=== PATIENT | female | born 1955 | race Caucasian/White ===

== ENCOUNTER → 2024-04-28 | Outpatient (CLI) | payer MEDICARE, MEDICAID, SELFPAY ==
[2024-04-28 09:40] LABS: Basophils # (Auto) 0.1 Thou/mm3 (0.0-0.2); Basophils % (Auto) 1 % (0-2.5); Eosinophils # (Auto) 0.2 Thou/mm3 (0.0-0.5); Eosinophils % (Auto) 2 % (0-10); Hematocrit 41.6 % (36.0-46.0); Immature Granulocytes % (Auto) 1 % (0-0); Immature Granulocytes Auto 0.05 Thou/mm3 (0.00-0.00); Lymphocytes # (Auto) 2.8 Thou/mm3 (1.0-4.8); Lymphocytes % (Auto) 30 % (10-50); Mean Corpuscular HGB Conc 33.7 g/dl (31.0-37.0); Mean Corpuscular Hemoglobin 28.2 pg (25.0-35.0); Mean Corpuscular Volume 84 fL (80-100); Monocytes # (Auto) 0.6 Thou/mm3 (0.0-0.8); Monocytes % (Auto) 6 % (0-12); Neutrophils # (Auto) 5.8 Thou/mm3 (1.8-7.7); Neutrophils % (Auto) 61 % (37-80); Nucleated Red Blood Cell % 0 /100 WBC (0); Platelet Count 380 Thou/mm3 (140-440); RDW Standard Deviation 42.2 fL (36.4-46.3); Red Blood Count 4.96 Miln/mm3 (4.00-5.20); White Blood Count 9.5 Thou/mm3 (3.6-11.0)
[2024-04-28 10:12] LABS: Alanine Aminotransferase 22 U/L (10-49); Albumin, Serum 5.6 gm/dL (3.4-4.8); Albumin/Globulin Ratio 2.2 (1.2-2.2); Alkaline Phosphatase 103 U/L (46-116); Anion Gap 9 (7-16); Aspartate Amino Transferase 16 U/L (0-34); BUN/Creatinine Ratio 14 Ratio (12-20); Bilirubin,Total 0.4 mg/dL (0.3-1.2); Blood Urea Nitrogen 11 mg/dL (9-23); Calcium 10.2 mg/dL (8.3-10.6); Calcium (Corrected) 10.2 mg/dL (8.5-10.1); Carbon Dioxide 27.7 mMol/L (20.0-31.0); Chloride 95 mMol/L (98-107); Creatinine (Component) 0.8 mg/dL (0.6-1.3); Globulin 2.6 gm/dL (2.3-3.5); Glucose 100 mg/dL (74-106); Osmolality,Calculated 263 (275-295); Potassium 4.2 mMol/L (3.4-5.1); Sodium 132 mMol/L (136-145); Total Protein 8.2 gm/dL (5.7-8.2); eGFR > 60 See Note
== END | disposition home or self-care (01) ==
LOC: COPL 09:10
PROVIDERS: PCP Nurse Practitioner Family; Referring Provider Internal Medicine Nephrology; Visit Provider Internal Medicine Nephrology
DX: I12.9 Hypertensive chronic kidney disease with stage 1 through stage 4 chronic kidney disease, or unspecified chronic kidney disease (principal); N18.30 Chronic kidney disease, stage 3 unspecified; D63.1 Anemia in chronic kidney disease; E21.3 Hyperparathyroidism, unspecified
CPT/HCPCS: 36415; 80053; 85025

== ENCOUNTER → 2024-05-26 | Outpatient (CLI) | payer MEDICARE, MEDICAID, SELFPAY ==
[2024-05-26 10:27] LABS: Basophils # (Auto) 0.1 Thou/mm3 (0.0-0.2); Basophils % (Auto) 1 % (0-2.5); Eosinophils # (Auto) 0.6 Thou/mm3 (0.0-0.5); Eosinophils % (Auto) 5 % (0-10); Hematocrit 41.1 % (36.0-46.0); Hemoglobin 13.8 g/dL (12.0-16.0); Immature Granulocytes % (Auto) 1 % (0-0); Immature Granulocytes Auto 0.05 Thou/mm3 (0.00-0.00); Lymphocytes # (Auto) 2.8 Thou/mm3 (1.0-4.8); Lymphocytes % (Auto) 27 % (10-50); Mean Corpuscular HGB Conc 33.6 g/dl (31.0-37.0); Mean Corpuscular Hemoglobin 28.2 pg (25.0-35.0); Mean Corpuscular Volume 84 fL (80-100); Monocytes # (Auto) 0.8 Thou/mm3 (0.0-0.8); Monocytes % (Auto) 8 % (0-12); Neutrophils # (Auto) 6.3 Thou/mm3 (1.8-7.7); Neutrophils % (Auto) 60 % (37-80); Nucleated Red Blood Cell % 0 /100 WBC (0); Platelet Count 404 Thou/mm3 (140-440); RDW Standard Deviation 42.1 fL (36.4-46.3); Red Blood Count 4.89 Miln/mm3 (4.00-5.20); White Blood Count 10.6 Thou/mm3 (3.6-11.0)
[2024-05-26 10:42] LABS: Alanine Aminotransferase 23 U/L (10-49); Albumin, Serum 5.4 gm/dL (3.4-4.8); Albumin/Globulin Ratio 1.8 (1.2-2.2); Alkaline Phosphatase 100 U/L (46-116); Anion Gap 11 (7-16); Aspartate Amino Transferase 22 U/L (0-34); BUN/Creatinine Ratio 16 Ratio (12-20); Bilirubin,Total 0.4 mg/dL (0.3-1.2); Blood Urea Nitrogen 13 mg/dL (9-23); Calcium 10.2 mg/dL (8.3-10.6); Calcium (Corrected) 10.2 mg/dL (8.5-10.1); Carbon Dioxide 28.5 mMol/L (20.0-31.0); Chloride 95 mMol/L (98-107); Creatinine (Component) 0.8 mg/dL (0.6-1.3); Glucose 94 mg/dL (74-106); Osmolality,Calculated 268 (275-295); Phosphorous 4.9 mg/dL (2.4-5.1); Potassium 4.2 mMol/L (3.4-5.1); Sodium 134 mMol/L (136-145); Total Protein 8.4 gm/dL (5.7-8.2); eGFR > 60 See Note
[2024-05-26 10:43] LABS: Creatinine MALB Rnd Ur 19 mg/dL (30-125); Microalbumin Creat Ratio 68 mg/gCrea (<30); Microalbumin, Random Urine 13 mg/L (0-300)
[2024-05-26 10:46] LABS: Parathyroid Hormone Intact 13.3 pg/ml (18.5-88.0)
== END | disposition home or self-care (01) ==
LOC: COPL 09:18
PROVIDERS: PCP Nurse Practitioner Family; Referring Provider Internal Medicine Nephrology; Visit Provider Internal Medicine Nephrology
DX: I12.9 Hypertensive chronic kidney disease with stage 1 through stage 4 chronic kidney disease, or unspecified chronic kidney disease (principal); E11.22 Type 2 diabetes mellitus with diabetic chronic kidney disease; N18.9 Chronic kidney disease, unspecified; D63.1 Anemia in chronic kidney disease; E21.3 Hyperparathyroidism, unspecified
CPT/HCPCS: 36415; 80053; 82043; 82570; 83970; 84100; 85025

== ENCOUNTER → 2024-06-23 | Outpatient (CLI) | payer MEDICARE, MEDICAID, SELFPAY ==
[2024-06-23 13:21] LABS: Basophils # (Auto) 0.1 Thou/mm3 (0.0-0.2); Basophils % (Auto) 1 % (0-2.5); Eosinophils # (Auto) 0.5 Thou/mm3 (0.0-0.5); Eosinophils % (Auto) 5 % (0-10); Hematocrit 39.6 % (36.0-46.0); Hemoglobin 13.4 g/dL (12.0-16.0); Immature Granulocytes % (Auto) 1 % (0-0); Immature Granulocytes Auto 0.05 Thou/mm3 (0.00-0.00); Lymphocytes # (Auto) 3.7 Thou/mm3 (1.0-4.8); Lymphocytes % (Auto) 34 % (10-50); Mean Corpuscular HGB Conc 33.8 g/dl (31.0-37.0); Mean Corpuscular Volume 86 fL (80-100); Monocytes # (Auto) 0.7 Thou/mm3 (0.0-0.8); Monocytes % (Auto) 7 % (0-12); Neutrophils # (Auto) 5.9 Thou/mm3 (1.8-7.7); Neutrophils % (Auto) 54 % (37-80); Nucleated Red Blood Cell % 0 /100 WBC (0); Platelet Count 398 Thou/mm3 (140-440); RDW Standard Deviation 41.4 fL (36.4-46.3); Red Blood Count 4.62 Miln/mm3 (4.00-5.20)
[2024-06-23 13:41] LABS: Alanine Aminotransferase 14 U/L (10-49); Albumin, Serum 5.5 gm/dL (3.4-4.8); Albumin/Globulin Ratio 2.3 (1.2-2.2); Alkaline Phosphatase 100 U/L (46-116); Anion Gap 11 (7-16); Aspartate Amino Transferase 15 U/L (0-34); BUN/Creatinine Ratio 18 Ratio (12-20); Bilirubin,Total 0.3 mg/dL (0.3-1.2); Blood Urea Nitrogen 14 mg/dL (9-23); Calcium 9.1 mg/dL (8.3-10.6); Calcium (Corrected) 9.1 mg/dL (8.5-10.1); Carbon Dioxide 30.9 mMol/L (20.0-31.0); Chloride 94 mMol/L (98-107); Creatinine (Component) 0.8 mg/dL (0.6-1.3); Globulin 2.4 gm/dL (2.3-3.5); Glucose 100 mg/dL (74-106); Osmolality,Calculated 272 (275-295); Potassium 4.1 mMol/L (3.4-5.1); Sodium 136 mMol/L (136-145); Total Protein 7.9 gm/dL (5.7-8.2); eGFR > 60 See Note
== END | disposition home or self-care (01) ==
LOC: COPL 11:28
PROVIDERS: PCP Nurse Practitioner Family; Referring Provider Internal Medicine Nephrology; Visit Provider Internal Medicine Nephrology
DX: I12.9 Hypertensive chronic kidney disease with stage 1 through stage 4 chronic kidney disease, or unspecified chronic kidney disease (principal); N18.9 Chronic kidney disease, unspecified; D63.1 Anemia in chronic kidney disease; E87.1 Hypo-osmolality and hyponatremia
CPT/HCPCS: 36415; 80053; 85025

== ENCOUNTER → 2024-07-21 | Outpatient (CLI) | payer MEDICARE, MEDICAID, SELFPAY ==
[2024-07-21 12:05] LABS: Basophils # (Auto) 0.1 Thou/mm3 (0.0-0.2); Basophils % (Auto) 1 % (0-2.5); Eosinophils # (Auto) 0.2 Thou/mm3 (0.0-0.5); Eosinophils % (Auto) 1 % (0-10); Hematocrit 41.4 % (36.0-46.0); Hemoglobin 14.1 g/dL (12.0-16.0); Immature Granulocytes % (Auto) 0 % (0-0); Immature Granulocytes Auto 0.05 Thou/mm3 (0.00-0.00); Lymphocytes # (Auto) 2.9 Thou/mm3 (1.0-4.8); Lymphocytes % (Auto) 26 % (10-50); Mean Corpuscular HGB Conc 34.1 g/dl (31.0-37.0); Mean Corpuscular Hemoglobin 28.8 pg (25.0-35.0); Mean Corpuscular Volume 85 fL (80-100); Monocytes # (Auto) 0.8 Thou/mm3 (0.0-0.8); Monocytes % (Auto) 7 % (0-12); Neutrophils # (Auto) 7.3 Thou/mm3 (1.8-7.7); Neutrophils % (Auto) 65 % (37-80); Nucleated Red Blood Cell % 0 /100 WBC (0); Platelet Count 428 Thou/mm3 (140-440); RDW Standard Deviation 39.5 fL (36.4-46.3); White Blood Count 11.3 Thou/mm3 (3.6-11.0)
[2024-07-21 13:29] LABS: Parathyroid Hormone Intact 10.2 pg/ml (18.5-88.0)
[2024-07-21 13:32] LABS: Alanine Aminotransferase 16 U/L (10-49); Albumin, Serum 5.5 gm/dL (3.4-4.8); Albumin/Globulin Ratio 2.2 (1.2-2.2); Alkaline Phosphatase 91 U/L (46-116); Anion Gap 10 (7-16); Aspartate Amino Transferase 19 U/L (0-34); BUN/Creatinine Ratio 23 Ratio (12-20); Bilirubin,Total 0.4 mg/dL (0.3-1.2); Blood Urea Nitrogen 18 mg/dL (9-23); Calcium 9.6 mg/dL (8.3-10.6); Calcium (Corrected) 9.6 mg/dL (8.5-10.1); Carbon Dioxide 27.8 mMol/L (20.0-31.0); Chloride 93 mMol/L (98-107); Creatinine (Component) 0.8 mg/dL (0.6-1.3); Globulin 2.5 gm/dL (2.3-3.5); Glucose 92 mg/dL (74-106); Osmolality,Calculated 264 (275-295); Phosphorous 5.1 mg/dL (2.4-5.1); Potassium 4.6 mMol/L (3.4-5.1); Sodium 131 mMol/L (136-145); eGFR > 60 See Note
[2024-07-21 14:02] LABS: Creatinine MALB Rnd Ur < 13 mg/dL (30-125); Microalbumin, Random Urine < 3 mg/L (0-300)
== END | disposition home or self-care (01) ==
PROVIDERS: PCP Internal Medicine Nephrology; Referring Provider Internal Medicine Nephrology; Visit Provider Internal Medicine Nephrology
DX: I12.9 Hypertensive chronic kidney disease with stage 1 through stage 4 chronic kidney disease, or unspecified chronic kidney disease (principal); E11.22 Type 2 diabetes mellitus with diabetic chronic kidney disease; N18.9 Chronic kidney disease, unspecified; D63.1 Anemia in chronic kidney disease; E21.3 Hyperparathyroidism, unspecified; E87.1 Hypo-osmolality and hyponatremia
CPT/HCPCS: 36415; 80053; 82043; 82570; 83970; 84100; 85025

== ENCOUNTER → 2024-08-26 | Outpatient (CLI) | payer MEDICARE, MEDICAID, SELFPAY ==
[2024-08-26 12:27] LABS: Basophils # (Auto) 0.1 Thou/mm3 (0.0-0.2); Basophils % (Auto) 1 % (0-2.5); Eosinophils # (Auto) 0.3 Thou/mm3 (0.0-0.5); Eosinophils % (Auto) 2 % (0-10); Hematocrit 40.3 % (36.0-46.0); Hemoglobin 13.5 g/dL (12.0-16.0); Immature Granulocytes % (Auto) 1 % (0-0); Immature Granulocytes Auto 0.12 Thou/mm3 (0.00-0.00); Lymphocytes # (Auto) 2.9 Thou/mm3 (1.0-4.8); Lymphocytes % (Auto) 26 % (10-50); Mean Corpuscular HGB Conc 33.5 g/dl (31.0-37.0); Mean Corpuscular Hemoglobin 28.7 pg (25.0-35.0); Mean Corpuscular Volume 86 fL (80-100); Monocytes # (Auto) 0.8 Thou/mm3 (0.0-0.8); Monocytes % (Auto) 7 % (0-12); Neutrophils # (Auto) 7.1 Thou/mm3 (1.8-7.7); Neutrophils % (Auto) 63 % (37-80); Nucleated Red Blood Cell % 0 /100 WBC (0); Platelet Count 368 Thou/mm3 (140-440); RDW Standard Deviation 39.6 fL (36.4-46.3); Red Blood Count 4.71 Miln/mm3 (4.00-5.20); White Blood Count 11.2 Thou/mm3 (3.6-11.0)
[2024-08-26 12:41] LABS: Alanine Aminotransferase 15 U/L (10-49); Albumin/Globulin Ratio 1.9 (1.2-2.2); Alkaline Phosphatase 84 U/L (46-116); Anion Gap 10 (7-16); Aspartate Amino Transferase 17 U/L (0-34); BUN/Creatinine Ratio 20 Ratio (12-20); Bilirubin,Total 0.3 mg/dL (0.3-1.2); Blood Urea Nitrogen 16 mg/dL (9-23); Calcium 9.1 mg/dL (8.3-10.6); Calcium (Corrected) 9.1 mg/dL (8.5-10.1); Carbon Dioxide 26.8 mMol/L (20.0-31.0); Chloride 96 mMol/L (98-107); Creatinine (Component) 0.8 mg/dL (0.6-1.3); Globulin 2.6 gm/dL (2.3-3.5); Glucose 103 mg/dL (74-106); Osmolality,Calculated 267 (275-295); Potassium 4.1 mMol/L (3.4-5.1); Sodium 133 mMol/L (136-145); Total Protein 7.6 gm/dL (5.7-8.2); eGFR > 60 See Note
== END | disposition home or self-care (01) ==
LOC: COPL 11:13
PROVIDERS: PCP Nurse Practitioner Family; Referring Provider Internal Medicine Nephrology; Visit Provider Internal Medicine Nephrology
DX: E11.22 Type 2 diabetes mellitus with diabetic chronic kidney disease (principal); E21.3 Hyperparathyroidism, unspecified; E78.1 Pure hyperglyceridemia; N04.9 Nephrotic syndrome with unspecified morphologic changes; N18.30 Chronic kidney disease, stage 3 unspecified
CPT/HCPCS: 36415; 80053; 85025

== ENCOUNTER → 2024-09-22 | Outpatient (CLI) | payer MEDICARE, MEDICAID, SELFPAY ==
[2024-09-22 11:43] LABS: Basophils # (Auto) 0.1 Thou/mm3 (0.0-0.2); Basophils % (Auto) 1 % (0-2.5); Eosinophils # (Auto) 0.2 Thou/mm3 (0.0-0.5); Eosinophils % (Auto) 3 % (0-10); Hematocrit 40.1 % (36.0-46.0); Hemoglobin 13.4 g/dL (12.0-16.0); Immature Granulocytes % (Auto) 1 % (0-0); Immature Granulocytes Auto 0.06 Thou/mm3 (0.00-0.00); Lymphocytes # (Auto) 3.3 Thou/mm3 (1.0-4.8); Lymphocytes % (Auto) 34 % (10-50); Mean Corpuscular HGB Conc 33.4 g/dl (31.0-37.0); Mean Corpuscular Hemoglobin 28.5 pg (25.0-35.0); Mean Corpuscular Volume 85 fL (80-100); Monocytes # (Auto) 0.6 Thou/mm3 (0.0-0.8); Monocytes % (Auto) 6 % (0-12); Neutrophils # (Auto) 5.5 Thou/mm3 (1.8-7.7); Neutrophils % (Auto) 56 % (37-80); Nucleated Red Blood Cell % 0 /100 WBC (0); Platelet Count 358 Thou/mm3 (140-440); RDW Standard Deviation 40.6 fL (36.4-46.3); Red Blood Count 4.71 Miln/mm3 (4.00-5.20); White Blood Count 9.7 Thou/mm3 (3.6-11.0)
[2024-09-22 11:52] LABS: Alanine Aminotransferase 15 U/L (10-49); Albumin/Globulin Ratio 2.1 (1.2-2.2); Alkaline Phosphatase 88 U/L (46-116); Anion Gap 8 (7-16); Aspartate Amino Transferase 18 U/L (0-34); BUN/Creatinine Ratio 15 Ratio (12-20); Bilirubin,Total 0.4 mg/dL (0.3-1.2); Blood Urea Nitrogen 12 mg/dL (9-23); Calcium 9.6 mg/dL (8.3-10.6); Calcium (Corrected) 9.6 mg/dL (8.5-10.1); Carbon Dioxide 27.5 mMol/L (20.0-31.0); Cardiac Risk Estimate 3.1 RATIO (3.7-5.6); Chloride 98 mMol/L (98-107); Cholesterol 144 mg/dL (132-200); Creatinine (Component) 0.8 mg/dL (0.6-1.3); Globulin 2.4 gm/dL (2.3-3.5); Glucose 93 mg/dL (74-106); HDL Cholesterol 46 mg/dL (40-60); LDL Cholesterol,Calculated 63 mg/dL (0-130); Osmolality,Calculated 266 (275-295); Potassium 4.9 mMol/L (3.4-5.1); Sodium 133 mMol/L (136-145); Thyroid Stimulating Hormone 0.92 uIU/mL (0.55-4.78); Total Protein 7.4 gm/dL (5.7-8.2); Triglycerides 176 mg/dL (30-150); eGFR > 60 See Note
[2024-09-22 13:05] LABS: Glucose Estimated Average 120 mg/dL (80-131); Hemoglobin A1C 5.8 % Hgb (4.8-6.0)
== END | disposition home or self-care (01) ==
PROVIDERS: PCP Nurse Practitioner Family; Referring Provider Internal Medicine Nephrology; Visit Provider Internal Medicine Nephrology
DX: I12.9 Hypertensive chronic kidney disease with stage 1 through stage 4 chronic kidney disease, or unspecified chronic kidney disease (principal); E11.22 Type 2 diabetes mellitus with diabetic chronic kidney disease; N18.9 Chronic kidney disease, unspecified; D63.1 Anemia in chronic kidney disease; E11.65 Type 2 diabetes mellitus with hyperglycemia; E78.2 Mixed hyperlipidemia; E03.9 Hypothyroidism, unspecified; Z79.899 Other long term (current) drug therapy
CPT/HCPCS: 36415; 80053; 80061; 83036; 84443; 85025

== ENCOUNTER → 2024-10-08 | Outpatient (CLI) | payer MEDICARE, MEDICAID, SELFPAY ==
--- NOTE | 2024-10-08 13:54 | XR_ITS ---
Examination: Screening digital mammography, bilateral Computer aided detection 3-D breast Tomosynthesis, bilateral Date and time of exam: October 08, 2024 1359 hours Compared to mammograms dating to March 23, 2022 Indication: Screening Technique: Nonmagnified MLO, CC views of the breasts to been obtained, reconstructed from 3-D Tomosynthesis images. R2 computer aided detection program utilized for evaluation of suspicious masses and/or abnormal calcifications. 3-D Tomosynthesis images obtained. Findings: The breasts are heterogeneously dense, which may obscure small masses Benign calcifications No interval suspicious masses Impression: BI-RADS category II: Benign Findings. Recommend 1 year follow-up mammogram.
== END | disposition home or self-care (01) ==
PROVIDERS: PCP Nurse Practitioner Family; Referring Provider Nurse Practitioner Family; Visit Provider Nurse Practitioner Family
DX: Z12.31 Encounter for screening mammogram for malignant neoplasm of breast (principal); R92.323 Mammographic fibroglandular density, bilateral breasts
CPT/HCPCS: 77063; 77067

== ENCOUNTER → 2024-10-20 | Outpatient (CLI) | payer MEDICARE, MEDICAID, SELFPAY ==
[2024-10-20 11:54] LABS: Basophils # (Auto) 0.1 Thou/mm3 (0.0-0.2); Basophils % (Auto) 1 % (0-2.5); Eosinophils # (Auto) 0.3 Thou/mm3 (0.0-0.5); Eosinophils % (Auto) 3 % (0-10); Hematocrit 39.2 % (36.0-46.0); Hemoglobin 13.4 g/dL (12.0-16.0); Immature Granulocytes % (Auto) 1 % (0-0); Immature Granulocytes Auto 0.05 Thou/mm3 (0.00-0.00); Lymphocytes % (Auto) 32 % (10-50); Mean Corpuscular HGB Conc 34.2 g/dl (31.0-37.0); Mean Corpuscular Hemoglobin 29.5 pg (25.0-35.0); Mean Corpuscular Volume 86 fL (80-100); Monocytes # (Auto) 0.7 Thou/mm3 (0.0-0.8); Monocytes % (Auto) 7 % (0-12); Neutrophils # (Auto) 5.3 Thou/mm3 (1.8-7.7); Neutrophils % (Auto) 57 % (37-80); Nucleated Red Blood Cell % 0 /100 WBC (0); Platelet Count 349 Thou/mm3 (140-440); RDW Standard Deviation 41.6 fL (36.4-46.3); Red Blood Count 4.54 Miln/mm3 (4.00-5.20); White Blood Count 9.4 Thou/mm3 (3.6-11.0)
[2024-10-20 12:09] LABS: Alanine Aminotransferase 18 U/L (10-49); Albumin, Serum 5.1 gm/dL (3.4-4.8); Albumin/Globulin Ratio 1.8 (1.2-2.2); Alkaline Phosphatase 85 U/L (46-116); Anion Gap 10 (7-16); Aspartate Amino Transferase 23 U/L (0-34); BUN/Creatinine Ratio 19 Ratio (12-20); Bilirubin,Total 0.3 mg/dL (0.3-1.2); Blood Urea Nitrogen 17 mg/dL (9-23); Calcium 9.4 mg/dL (8.3-10.6); Calcium (Corrected) 9.4 mg/dL (8.5-10.1); Carbon Dioxide 27.2 mMol/L (20.0-31.0); Chloride 97 mMol/L (98-107); Creatinine (Component) 0.9 mg/dL (0.6-1.3); Globulin 2.8 gm/dL (2.3-3.5); Glucose 103 mg/dL (74-106); Osmolality,Calculated 269 (275-295); Phosphorous 4.4 mg/dL (2.4-5.1); Potassium 4.7 mMol/L (3.4-5.1); Sodium 134 mMol/L (136-145); Total Protein 7.9 gm/dL (5.7-8.2); eGFR > 60 See Note
[2024-10-20 12:14] LABS: Parathyroid Hormone Intact 8.2 pg/ml (18.5-88.0)
[2024-10-20 12:24] LABS: Creatinine MALB Rnd Ur 18 mg/dL (30-125); Microalbumin, Random Urine < 3 mg/L (0-300)
== END | disposition home or self-care (01) ==
LOC: COPL 10:21
PROVIDERS: PCP Nurse Practitioner Family; Referring Provider Internal Medicine Nephrology; Visit Provider Internal Medicine Nephrology
DX: E11.22 Type 2 diabetes mellitus with diabetic chronic kidney disease (principal); N18.9 Chronic kidney disease, unspecified; D63.1 Anemia in chronic kidney disease; E21.3 Hyperparathyroidism, unspecified; N04.9 Nephrotic syndrome with unspecified morphologic changes; E78.5 Hyperlipidemia, unspecified
CPT/HCPCS: 36415; 80053; 82043; 82570; 83970; 84100; 85025

== ENCOUNTER 2024-10-30 09:14 | Outpatient (AMB) | payer MEDICARE, MEDICAID, SELFPAY ==
[2024-10-30 09:39] VITALS: BP 123/71; PULSE 88; RESP 18; TEMP 36.9; O2SAT 93; BMI 33.3
--- NOTE | 2024-10-30 09:39 | ORTHONT_ITS ---
Vital signs 10/30/24 09:39 Height 1.6 m Height Method Stated Weight 85.445 kg Weight Measurement Method Standing Scale BMI 33.3 BP 123/71 Blood Pressure Source Automatic Cuff Blood Pressure Location Right Upper Arm Position Sitting Respiration 18 Pulse 88 Pulse Source Monitor Temp 98.4 F Temp Source Temporal Artery Scan Pulse Oximetry (%) 93 L Oxygen Delivery Method Room Air Med/Allergies Allergies & Medications Allergies codeine Allergy (Mild, Verified 10/30/24 09:40) Nausea Medication Reconciliation atorvastatin 10 mg tablet 10 mg PO QDAY 06/28/18 [History Confirmed 10/30/24] citalopram 20 mg tablet 40 mg PO QDAY 06/28/18 [History Confirmed 10/30/24] clonazepam 0.5 mg tablet 0.5 mg PO HS 06/28/18 [History Confirmed 10/30/24] gabapentin 300 mg capsule 300 mg PO BID 06/28/18 [History Confirmed 10/30/24] levothyroxine 75 mcg tablet 75 mcg PO QDAY 06/28/18 [History Confirmed 10/30/24] olanzapine 15 mg tablet 15 mg PO DAILY 06/28/18 [History Confirmed 10/30/24] pantoprazole 40 mg tablet,delayed release 40 mg PO QDAY 06/28/18 [History Confirmed 10/30/24] lisinopril 20 mg tablet 10 mg PO QDAY 03/11/21 [History Confirmed 10/30/24] metformin 500 mg tablet 500 mg PO QDAY 03/11/21 [History Confirmed 10/30/24] albuterol sulfate 90 mcg/actuation aerosol inhaler 2 puff inhalation Q6H PRN shortness of breath or wheezing #6.7 grams 03/21/21 [Rx Confirmed 10/30/24] acetaminophen 325 mg tablet (Tylenol) 500 mg PO BID PRN Pain 07/05/22 [History Confirmed 10/30/24] amlodipine 10 mg tablet 10 mg PO 1XD 07/05/22 [History Confirmed 10/30/24] docusate sodium 100 mg tablet 100 mg PO QDAY 07/05/22 [History Confirmed 10/30/24] ferrous sulfate 325 mg (65 mg iron) tablet 325 mg PO BID 07/05/22 [History Confirmed 10/30/24] fluticasone furoate 27.5 mcg/actuation nasal spray,suspension 1 spray intranasal QDAY 07/05/22 [History Confirmed 10/30/24] furosemide 20 mg tablet 20 mg PO 1XD 07/05/22 [History Confirmed 10/30/24] tramadol 50 mg tablet 50 mg PO BID PRN Pain 07/05/22 [History Confirmed 10/30/24] meloxicam 7.5 mg tablet 7.5 mg PO QDAY #45 tabs 10/30/24 [Rx] Exam Exam Patient is in no acute distress and is cooperative with the examination today. Breathing is nonlabored. Patient has a normal mood and affect. The patient has a gait that is nonantalgic Bilateral extremities were evaluated and demonstrates sensation intact to light touch. Palpable pedal pulses are present. No significant edema is present. Bilateral hips were examined. The patient has no pain with log roll of the hips. Internal rotation to 30 degrees and external rotation to 30 degrees is painless. Negative FADIR. Right knee was examined today. The right knee is in reasonable alignment. Range of motion from 0-120 degrees. Knee is stable to varus and valgus as well as AP translation with <5mm. Incision is clean dry and intact Left knee was examined today. The left knee is in neutral alignment. Range of motion from 0-120 degrees. Knee is stable to varus and valgus as well as AP translation with <5mm. Incision is clean dry and intact. She is very tender to palpation posterior laterally Assessment and Plan Problem List (1) Tendonitis: Status: Acute Plan: Patient Is a 69-year-old female with bilateral knee pain. The pain is improved significantly with rest and anti-inflammatories. We discussed continued conservative treatment. A lot of the pain seems to be hamstring tendinitis at its insertion on the fibula. We will get new x-rays as it has been quite a while. She continues to have posterior lateral pain. I recommend physical therapy. We will see her back after her x-rays are done (2) Pain in right knee: Status: Acute (3) Posterior left knee pain: Status: Acute Advanced Care Planning Discussion Advance care planning discussed with:: patient Office Procedures GNS Level of Care Nursing/Assessment Patient Status: Initial/New Patient Nursing Assessment/Reassesment: Medication Reconciliation and Update PMH in EMR Coordination of Care: Complex Care and Chronic Disease 1-5, Consent,records obtained, informed consent, Education Simp Pt/Fam, 1 Ins Authorization, Lab and Imaging orders and Results/Orders obtained New Patient Charge New Patient Point Assignment: 1094 New Patient Point Charge: TRANSFORMATION SPECIALIST Level 3 ([id number]) MA Intake Visit Data Collection New Patient or Established: Established Patient (seen at [facility] within 3 years) Reason for Visit:: LT KNEE PAIN Seen by Clinical Staff ONLY (RN/MA): No Geosciences Faculty Member Required: No PCP or OBGYN visit in last 3 months: Yes Hx Now: No Do You Feel Safe at Home: Yes Authorities Contacted: N/A Questionairres Past Medical History Past Medical History Have you ever been diagnosed with any of the following: Neurological Problems Seizures: No Migraine: Yes Cardiology Problems Hypercholesterolemia: Yes (takes medication) Congestive Heart Failure: No Edema: No Cellulitis: No Hypertension: Yes (takes medication) Varicose Veins: No Respiratory Problems Chronic Obstructive Pulmonary Disease (COPD): No Asthma: Yes (asthma, takes inhaler regularly) Bronchitis: Yes Pneumonia: Yes Tuberculosis: No Sleep Apnea: No Smoking: No Smoking Cessation Counseling: No Smoking Exposure: No Tobacco Use: No Stomache/Intestinal Problems Hepatitis: No Colorectal Cancer: No Hemorrhoids: Yes (and constipation) Gastroesophageal Reflux Disease: Yes (takes medication) Obesity: Yes Genital/Urinary Problems Renal Disease: No Reproductive Problems Breast Cancer: No Pelvic Inflammatory Disease: No Previous Pregnancies: No Musculoskeletal Problems Bone Cancer: No Arthritis: Yes Carpal Tunnel Syndrome: No Fractures: No Head,Eye,Nose,Throat Problems Cataracts: Yes (Right eye) Deafness: Yes (wears hearing aid-bilateral) Endocrine Problems Diabetes Mellitus Type 1: No Diabetes Mellitus Type 2: Yes (takes medication) Hypothyroidism: Yes (takes medication) Blood Problems Anemia: Yes (takes medication) Psychologic Problems Schizophrenia: Yes (takes medication) Depression: Yes (takes medication) Anxiety: Yes (takes medication) Other Problems Hospitalization: Yes (knee replacement 2020) Shingles: Yes (2001) Falls: No Blood Transfusions: No Blood Transfusion Reaction: No Anesthesia Reactions: Yes (sensitive) Chemotherapy: No Radiation Therapy: No MRSA: No Chicken Pox: Yes (child) Measles: No Mumps: No Clostridium Difficile: No Cancer: No Cervical Cancer: No Lung Cancer: No Ovarian Cancer: No Surgical History Hysterectomy: No Pacemaker: No Subjective Visit Visit for: new patient and knee (LEFT KNEE ) Immunization / Flu Flu Vaccine in the Last 12 Months: Yes Flu Vaccine Exclusion Criteria: Already Received History of Present Illness Chief complaint: Left knee pain Tab is a pleasant 69-year-old female with left knee pain. The left knee pain has been ongoing since surgery few years ago with Dr. Gomez. She reports that the pain on the posterior lateral aspect of her knee. She has no x-rays with her today Personal History Red flag PMH: none Pain Pain level (0-10): 10 Pain duration: 2 YEARS Pain location: anterior Pain quality: sharp Pain timing: night and increases with activity Associated signs & symptoms: weakness and stiffness Ambulatory data Ambulatory device: walker Walking distance (minutes): 1 Treatments Number of previous injections: 0 Number of Physical Therapy sessions: 8 Improvement with PT: No Improvement with NSAIDS: n/a Review of Systems Review of Systems: All systems negative unless otherwise noted in HPI.
--- NOTE | 2024-10-30 09:44 | XR_ITS ---
Examination: Bilateral knees 2 views Right lateral knee left lateral knee 2 views Bilateral axial knees single view TECHNIQUE: Bilateral AP knees standing single view, bilateral PA knees standing single view flexion Standing right lateral knee left lateral knee 2 views Bilateral axial knees single view total 5 views Date and time: October 30, 2024 0955 hours INDICATIONS: Knee pain beginning 2 years ago. FINDINGS: Moderate osteopenia. Bilateral total knee arthroplasties with satisfactory alignment. No fractures No loosening of the prosthetic components No patellar dislocation IMPRESSION: Bilateral total knee arthroplasties with satisfactory alignment
== END 2024-10-30 09:53 | disposition home or self-care (01) ==
LOC: HODSRG 09:15
PROVIDERS: PCP Nurse Practitioner Family; Referring Provider Nurse Practitioner Family; Supervising Provider Orthopaedic Surgery Adult Reconstructive Orthopaedic Surgery; Visit Provider Orthopaedic Surgery Adult Reconstructive Orthopaedic Surgery
DX: M77.9 Enthesopathy, unspecified (principal); M25.562 Pain in left knee; M25.561 Pain in right knee
CPT/HCPCS: 73564; 99203; G0463

== ENCOUNTER 2024-11-18 10:35 | Outpatient (AMB) | payer MEDICARE, MEDICAID, SELFPAY ==
[2024-11-18 10:54] VITALS: BP 123/78; PULSE 78; RESP 19; TEMP 36.2; O2SAT 94; BMI 33.5
--- NOTE | 2024-11-18 10:54 | ORTHONT_ITS ---
Vital signs 11/18/24 10:54 Height 1.6 m Height Method Stated Weight 85.729 kg Weight Measurement Method Standing Scale BMI 33.5 BP 123/78 Blood Pressure Source Automatic Cuff Blood Pressure Location Left Upper Arm Position Sitting Respiration 19 Pulse 78 Pulse Source Monitor Temp 97.2 F Temp Source Temporal Artery Scan Pulse Oximetry (%) 94 L Oxygen Delivery Method Room Air Med/Allergies Allergies & Medications Allergies codeine Allergy (Mild, Verified 11/18/24 10:55) Nausea Medication Reconciliation atorvastatin 10 mg tablet 10 mg PO QDAY 06/28/18 [History Confirmed 11/18/24] citalopram 20 mg tablet 40 mg PO QDAY 06/28/18 [History Confirmed 11/18/24] clonazepam 0.5 mg tablet 0.5 mg PO HS 06/28/18 [History Confirmed 11/18/24] gabapentin 300 mg capsule 300 mg PO BID 06/28/18 [History Confirmed 11/18/24] levothyroxine 75 mcg tablet 75 mcg PO QDAY 06/28/18 [History Confirmed 11/18/24] olanzapine 15 mg tablet 15 mg PO DAILY 06/28/18 [History Confirmed 11/18/24] pantoprazole 40 mg tablet,delayed release 40 mg PO QDAY 06/28/18 [History Confirmed 11/18/24] lisinopril 20 mg tablet 10 mg PO QDAY 03/11/21 [History Confirmed 11/18/24] metformin 500 mg tablet 500 mg PO QDAY 03/11/21 [History Confirmed 11/18/24] albuterol sulfate 90 mcg/actuation aerosol inhaler 2 puff inhalation Q6H PRN shortness of breath or wheezing #6.7 grams 03/21/21 [Rx Confirmed 11/18/24] acetaminophen 325 mg tablet (Tylenol) 500 mg PO BID PRN Pain 07/05/22 [History Confirmed 11/18/24] amlodipine 10 mg tablet 10 mg PO 1XD 07/05/22 [History Confirmed 11/18/24] docusate sodium 100 mg tablet 100 mg PO QDAY 07/05/22 [History Confirmed 11/18/24] ferrous sulfate 325 mg (65 mg iron) tablet 325 mg PO BID 07/05/22 [History Confirmed 11/18/24] fluticasone furoate 27.5 mcg/actuation nasal spray,suspension 1 spray intranasal QDAY 07/05/22 [History Confirmed 11/18/24] furosemide 20 mg tablet 20 mg PO 1XD 07/05/22 [History Confirmed 11/18/24] tramadol 50 mg tablet 50 mg PO BID PRN Pain 07/05/22 [History Confirmed 11/18/24] meloxicam 7.5 mg tablet 7.5 mg PO QDAY #45 tabs 10/30/24 [Rx Confirmed 11/18/24] Exam Exam Patient is in no acute distress and is cooperative with the examination today. Breathing is nonlabored. Patient has a normal mood and affect. The patient has a gait that is nonantalgic Bilateral extremities were evaluated and demonstrates sensation intact to light touch. Palpable pedal pulses are present. No significant edema is present. Bilateral hips were examined. The patient has no pain with log roll of the hips. Internal rotation to 30 degrees and external rotation to 30 degrees is painless. Negative FADIR. Right knee was examined today. The right knee is in reasonable alignment. Range of motion from 0-120 degrees. Knee is stable to varus and valgus as well as AP translation with <5mm. Incision is clean dry and intact Left knee was examined today. The left knee is in neutral alignment. Range of motion from 0-120 degrees. Knee is stable to varus and valgus as well with <5mm. She does have greater than 1 cm of motion in the AP translation with flexion. Incision is clean dry and intact. She is very tender to palpation posterior laterally Assessment and Plan Problem List (1) Tendonitis: Status: Acute Plan: Patient Is a 69-year-old female with bilateral knee pain. The pain is improved significantly with rest and anti-inflammatories. We discussed continued conservative treatment. A lot of the pain seems to be hamstring tendinitis at its insertion on the fibula. She does have pain posteriorly and there is flexion instability of her knee. We discussed that we can try exercising on. She is on pain medication and reports that she does have pain everywhere. We discussed that this is not a good prognostic sign. X-rays demonstrate no loosening of the component (2) Pain in right knee: Status: Acute (3) Posterior left knee pain: Status: Acute Advanced Care Planning Discussion Advance care planning discussed with:: patient Office Procedures GNS Level of Care Nursing/Assessment Patient Status: Established Patient Nursing Assessment/Reassesment: Medication Reconciliation, Update PMH in EMR and Vital Signs Coordination of Care: Complex Care and Chronic Disease 1-5, Education Complex Pt/Fam, Consent,records obtained, informed consent, Results/Orders obtained and Staff clarify orders Established Patient Charge Established Patient Point Assignment: 95 Established Patient Point Charge: EP Level 3 (80-115) MA Intake Visit Data Collection New Patient or Established: Established Patient (seen at [facility] within 3 years) Reason for Visit:: FOLLOW UP XRAYS/REQ RX REFILLS Seen by Clinical Staff ONLY (RN/MA): No PCP or OBGYN visit in last 3 months: Yes Hx Now: No Do You Feel Safe at Home: Yes Authorities Contacted: N/A Questionairres Past Medical History Past Medical History Have you ever been diagnosed with any of the following: Neurological Problems Seizures: No Migraine: Yes Cardiology Problems Hypercholesterolemia: Yes (takes medication) Congestive Heart Failure: No Edema: No Cellulitis: No Hypertension: Yes (takes medication) Varicose Veins: No Respiratory Problems Chronic Obstructive Pulmonary Disease (COPD): No Asthma: Yes (asthma, takes inhaler regularly) Bronchitis: Yes Pneumonia: Yes Tuberculosis: No Sleep Apnea: No Smoking: No Smoking Cessation Counseling: No Smoking Exposure: No Tobacco Use: No Stomache/Intestinal Problems Hepatitis: No Colorectal Cancer: No Hemorrhoids: Yes (and constipation) Gastroesophageal Reflux Disease: Yes (takes medication) Obesity: Yes Genital/Urinary Problems Renal Disease: No Reproductive Problems Breast Cancer: No Pelvic Inflammatory Disease: No Previous Pregnancies: No Musculoskeletal Problems Bone Cancer: No Arthritis: Yes Carpal Tunnel Syndrome: No Fractures: No Head,Eye,Nose,Throat Problems Cataracts: Yes (Right eye) Deafness: Yes (wears hearing aid-bilateral) Endocrine Problems Diabetes Mellitus Type 1: No Diabetes Mellitus Type 2: Yes (takes medication) Hypothyroidism: Yes (takes medication) Blood Problems Anemia: Yes (takes medication) Psychologic Problems Schizophrenia: Yes (takes medication) Depression: Yes (takes medication) Anxiety: Yes (takes medication) Other Problems Hospitalization: Yes (knee replacement 2020) Shingles: Yes (2001) Falls: No Blood Transfusions: No Blood Transfusion Reaction: No Anesthesia Reactions: Yes (sensitive) Chemotherapy: No Radiation Therapy: No MRSA: No Chicken Pox: Yes (child) Measles: No Mumps: No Clostridium Difficile: No Cancer: No Cervical Cancer: No Lung Cancer: No Ovarian Cancer: No Surgical History Hysterectomy: No Pacemaker: No Subjective Visit Visit for: follow up visit and x-rays Immunization / Flu Flu Vaccine in the Last 12 Months: No Flu Vaccine Exclusion Criteria: No Exclusion Criteria History of Present Illness Chief complaint: Left knee pain Tab is a pleasant 69-year-old female with left knee pain. The left knee pain has been ongoing since surgery few years ago with Dr. Gomez. She reports that the pain on the posterior lateral aspect of her knee. She reports occasionally feels like it gives out Personal History Red flag PMH: none Pain Pain level (0-10): 0 Pain duration: 2 YEARS Pain location: anterior Pain quality: sharp Pain timing: night and increases with activity Associated signs & symptoms: weakness and stiffness Ambulatory data Ambulatory device: walker Walking distance (minutes): 1 Treatments Number of previous injections: 0 Improvement with previous injections: No Number of Physical Therapy sessions: 8 Improvement with PT: No Improvement with NSAIDS: yes Review of Systems Review of Systems: All systems negative unless otherwise noted in HPI.
== END 2024-11-18 11:06 | disposition home or self-care (01) ==
LOC: HODSRG 10:35
PROVIDERS: PCP Nurse Practitioner Family; Referring Provider Nurse Practitioner Family; Supervising Provider Orthopaedic Surgery Adult Reconstructive Orthopaedic Surgery; Visit Provider Orthopaedic Surgery Adult Reconstructive Orthopaedic Surgery
DX: M77.9 Enthesopathy, unspecified (principal); M25.562 Pain in left knee; M25.561 Pain in right knee; I10 Essential (primary) hypertension; E78.00 Pure hypercholesterolemia, unspecified; K21.9 Gastro-esophageal reflux disease without esophagitis; E11.9 Type 2 diabetes mellitus without complications; E03.9 Hypothyroidism, unspecified
CPT/HCPCS: 99213; G0463

== ENCOUNTER → 2024-11-24 | Outpatient (CLI) | payer MEDICARE, MEDICAID, SELFPAY ==
[2024-11-24 10:50] LABS: Basophils # (Auto) 0.1 Thou/mm3 (0.0-0.2); Basophils % (Auto) 1 % (0-2.5); Eosinophils # (Auto) 0.2 Thou/mm3 (0.0-0.5); Eosinophils % (Auto) 2 % (0-10); Hematocrit 39.7 % (36.0-46.0); Hemoglobin 13.6 g/dL (12.0-16.0); Immature Granulocytes % (Auto) 0 % (0-0); Immature Granulocytes Auto 0.03 Thou/mm3 (0.00-0.00); Lymphocytes # (Auto) 2.4 Thou/mm3 (1.0-4.8); Lymphocytes % (Auto) 27 % (10-50); Mean Corpuscular HGB Conc 34.3 g/dl (31.0-37.0); Mean Corpuscular Volume 85 fL (80-100); Monocytes # (Auto) 0.7 Thou/mm3 (0.0-0.8); Monocytes % (Auto) 7 % (0-12); Neutrophils # (Auto) 5.8 Thou/mm3 (1.8-7.7); Neutrophils % (Auto) 63 % (37-80); Nucleated Red Blood Cell % 0 /100 WBC (0); Platelet Count 371 Thou/mm3 (140-440); RDW Standard Deviation 40.4 fL (36.4-46.3); Red Blood Count 4.69 Miln/mm3 (4.00-5.20); White Blood Count 9.1 Thou/mm3 (3.6-11.0)
[2024-11-24 11:21] LABS: Alanine Aminotransferase 20 U/L (10-49); Albumin, Serum 5.1 gm/dL (3.4-4.8); Albumin/Globulin Ratio 2.2 (1.2-2.2); Alkaline Phosphatase 78 U/L (46-116); Anion Gap 12 (7-16); Aspartate Amino Transferase 20 U/L (0-34); BUN/Creatinine Ratio 18 Ratio (12-20); Bilirubin,Total 0.3 mg/dL (0.3-1.2); Blood Urea Nitrogen 14 mg/dL (9-23); Calcium 9.7 mg/dL (8.3-10.6); Calcium (Corrected) 9.7 mg/dL (8.5-10.1); Carbon Dioxide 28.2 mMol/L (20.0-31.0); Chloride 94 mMol/L (98-107); Creatinine (Component) 0.8 mg/dL (0.6-1.3); Globulin 2.3 gm/dL (2.3-3.5); Glucose 108 mg/dL (74-106); Osmolality,Calculated 269 (275-295); Potassium 4.7 mMol/L (3.4-5.1); Sodium 134 mMol/L (136-145); Total Protein 7.4 gm/dL (5.7-8.2); eGFR > 60 See Note
== END | disposition home or self-care (01) ==
LOC: COPL 09:55
PROVIDERS: PCP Nurse Practitioner Family; Referring Provider Internal Medicine Nephrology; Visit Provider Internal Medicine Nephrology
DX: N18.2 Chronic kidney disease, stage 2 (mild) (principal); D63.1 Anemia in chronic kidney disease; E21.3 Hyperparathyroidism, unspecified; E03.9 Hypothyroidism, unspecified; E87.1 Hypo-osmolality and hyponatremia
CPT/HCPCS: 36415; 80053; 84100; 85025

== ENCOUNTER → 2024-12-22 | Outpatient (CLI) | payer MEDICARE, MEDICAID, SELFPAY ==
[2024-12-22 11:32] LABS: Alanine Aminotransferase 16 U/L (10-49); Albumin, Serum 5.1 gm/dL (3.4-4.8); Albumin/Globulin Ratio 2.0 (1.2-2.2); Alkaline Phosphatase 78 U/L (46-116); Anion Gap 11 (7-16); Aspartate Amino Transferase 22 U/L (0-34); BUN/Creatinine Ratio 11 Ratio (12-20); Bilirubin,Total 0.4 mg/dL (0.3-1.2); Blood Urea Nitrogen 9 mg/dL (9-23); Calcium 9.7 mg/dL (8.3-10.6); Calcium (Corrected) 9.7 mg/dL (8.5-10.1); Carbon Dioxide 25.3 mMol/L (20.0-31.0); Chloride 96 mMol/L (98-107); Creatinine (Component) 0.8 mg/dL (0.6-1.3); Globulin 2.6 gm/dL (2.3-3.5); Glucose 108 mg/dL (74-106); Osmolality,Calculated 264 (275-295); Potassium 4.4 mMol/L (3.4-5.1); Sodium 132 mMol/L (136-145); Total Protein 7.7 gm/dL (5.7-8.2); eGFR > 60 See Note
[2024-12-22 11:33] LABS: Basophils # (Auto) 0.1 Thou/mm3 (0.0-0.2); Basophils % (Auto) 1 % (0-2.5); Eosinophils # (Auto) 0.2 Thou/mm3 (0.0-0.5); Eosinophils % (Auto) 2 % (0-10); Hematocrit 40.6 % (36.0-46.0); Hemoglobin 13.8 g/dL (12.0-16.0); Immature Granulocytes Auto 0.04 Thou/mm3 (0.00-0.00); Lymphocytes # (Auto) 2.8 Thou/mm3 (1.0-4.8); Lymphocytes % (Auto) 30 % (10-50); Mean Corpuscular HGB Conc 34.0 g/dl (31.0-37.0); Mean Corpuscular Hemoglobin 29.1 pg (25.0-35.0); Mean Corpuscular Volume 86 fL (80-100); Monocytes # (Auto) 0.8 Thou/mm3 (0.0-0.8); Monocytes % (Auto) 8 % (0-12); Neutrophils # (Auto) 5.5 Thou/mm3 (1.8-7.7); Neutrophils % (Auto) 59 % (37-80); Nucleated Red Blood Cell # 0.00 Thou/mm3 (0.00-0.00); Nucleated Red Blood Cell % 0 /100 WBC (0); Platelet Count 366 Thou/mm3 (140-440); RDW Standard Deviation 39.3 fL (36.4-46.3); Red Blood Count 4.74 Miln/mm3 (4.00-5.20); White Blood Count 9.2 Thou/mm3 (3.6-11.0)
== END | disposition home or self-care (01) ==
LOC: COPL 10:25
PROVIDERS: PCP Nurse Practitioner Family; Referring Provider Internal Medicine Nephrology; Visit Provider Internal Medicine Nephrology
DX: E21.3 Hyperparathyroidism, unspecified (principal); E83.39 Other disorders of phosphorus metabolism; D64.9 Anemia, unspecified
CPT/HCPCS: 36415; 80053; 85025

== ENCOUNTER 2024-12-23 13:58 | Outpatient (AMB) | payer MEDICARE, MEDICAID, SELFPAY ==
[2024-12-23 14:39] VITALS: BP 144/78; PULSE 94; RESP 18; TEMP 36.4; O2SAT 92; BMI 32.1
--- NOTE | 2024-12-23 14:39 | PD.ORTHCLVIS ---
Vital signs 12/23/24 14:39 Height 1.6 m Height Method Stated Weight 82.327 kg Weight Measurement Method Standing Scale BMI 32.1 BP 144/78 H Blood Pressure Source Automatic Cuff Blood Pressure Location Left Upper Arm Position Sitting Respiration 18 Pulse 94 Pulse Source Monitor Temp 97.5 F Temp Source Temporal Artery Scan Pulse Oximetry (%) 92 L Oxygen Delivery Method Room Air Med/Allergies Allergies & Medications Allergies codeine Allergy (Mild, Verified 12/23/24 14:43) Nausea Medication Reconciliation atorvastatin 10 mg tablet 10 mg PO QDAY 06/28/18 [History Confirmed 12/23/24] citalopram 20 mg tablet 40 mg PO QDAY 06/28/18 [History Confirmed 12/23/24] clonazepam 0.5 mg tablet 0.5 mg PO HS 06/28/18 [History Confirmed 12/23/24] gabapentin 300 mg capsule 300 mg PO BID 06/28/18 [History Confirmed 12/23/24] levothyroxine 75 mcg tablet 75 mcg PO QDAY 06/28/18 [History Confirmed 12/23/24] olanzapine 15 mg tablet 15 mg PO DAILY 06/28/18 [History Confirmed 12/23/24] pantoprazole 40 mg tablet,delayed release 40 mg PO QDAY 06/28/18 [History Confirmed 12/23/24] lisinopril 20 mg tablet 10 mg PO QDAY 03/11/21 [History Confirmed 12/23/24] metformin 500 mg tablet 500 mg PO QDAY 03/11/21 [History Confirmed 12/23/24] albuterol sulfate 90 mcg/actuation aerosol inhaler 2 puff inhalation Q6H PRN shortness of breath or wheezing #6.7 grams 03/21/21 [Rx Confirmed 12/23/24] acetaminophen 325 mg tablet (Tylenol) 500 mg PO BID PRN Pain 07/05/22 [History Confirmed 12/23/24] amlodipine 10 mg tablet 10 mg PO 1XD 07/05/22 [History Confirmed 12/23/24] docusate sodium 100 mg tablet 100 mg PO QDAY 07/05/22 [History Confirmed 12/23/24] ferrous sulfate 325 mg (65 mg iron) tablet 325 mg PO BID 07/05/22 [History Confirmed 12/23/24] fluticasone furoate 27.5 mcg/actuation nasal spray,suspension 1 spray intranasal QDAY 07/05/22 [History Confirmed 12/23/24] furosemide 20 mg tablet 20 mg PO 1XD 07/05/22 [History Confirmed 12/23/24] tramadol 50 mg tablet 50 mg PO BID PRN Pain 07/05/22 [History Confirmed 12/23/24] meloxicam 7.5 mg tablet 7.5 mg PO QDAY #45 tabs 10/30/24 [Rx Confirmed 12/23/24] Exam Exam Patient is in no acute distress and is cooperative with the examination today. Breathing is nonlabored. Patient has a normal mood and affect. The patient has a gait that is nonantalgic Bilateral extremities were evaluated and demonstrates sensation intact to light touch. Palpable pedal pulses are present. No significant edema is present. Bilateral hips were examined. The patient has no pain with log roll of the hips. Internal rotation to 30 degrees and external rotation to 30 degrees is painless. Negative FADIR. Right knee was examined today. The right knee is in reasonable alignment. Range of motion from 0-120 degrees. Knee is stable to varus and valgus as well as AP translation with <5mm. Incision is clean dry and intact Left knee was examined today. The left knee is in neutral alignment. Range of motion from 0-120 degrees. Knee is stable to varus and valgus as well with <5mm. She does have greater than 1 cm of motion in the AP translation with flexion. Incision is clean dry and intact. She is very tender to palpation posterior laterally Assessment and Plan Problem List (1) Tendonitis: Status: Acute Plan: Patient Is a 69-year-old female with bilateral knee pain. The pain is improved significantly with rest and anti-inflammatories. We discussed continued conservative treatment. She has tried physical therapy and reports persistent pain. On examination today, she hyperextends by 10 degrees and has significant flexion stability. We discussed revision knee replacement is reasonable option. We will try to upsize her old liner but the baby maxed out the size already. He will have a full revision tray on backup. The nature and purpose of the revision total knee replacement, alternative method(s) of treatment, the material risks involved, and the possibility of complications were fully explained to the patient. The patient does NOT have any of the following contraindications to revision TKA: - Active infection of the knee joint, OR - Active systemic bacteremia, OR - Active skin infection or open wound at surgical site, OR - Neuropathic arthritis, OR - Severe, rapidly progressive neurological disease, OR - Severe medical condition that makes risks of surgery outweigh the potential benefit The patient was told the most common risks and complications associated with a total knee replacement include, but are not limited to: blood clots in the leg, fatal pulmonary embolism, dislocation of the prosthesis, intraoperative and postoperative fractures of the femur or tibia, infection, failure of the prosthesis or grafting materials, complications from anesthesia, reactions to blood transfusions, postoperative leg length inequality, instability of the knee replacement, nerve damage or injury, vascular injury, delayed wound healing, infection, other injury or even . In addition, there are risks associated with anesthesia given during this operation. Also, the patient was told that after undergoing a total knee replacement there may still be persistent pain or disability. The patient was informed that the success of this operation in part depends upon the mechanical devices which are going to be implanted and that these devices can fail or malfunction, and may need to be repaired or replaced and there are no guarantees as to the longevity of this device or its parts and that it or its parts could fail prematurely. The patient was also notified that during the course of surgery, there may be a need to use bone graft from donors, and that any bone graft used will be carefully screened for communicable diseases, including AIDS, hepatitis, Juan J-Creutzfeldt, or other diseases, but despite the screening procedures, there is a small chance that they could contract one of these diseases. Finally, the patient was asked to follow completely and fully with all advice and recommended treatments, and that recovery and ultimate outcome are affected by their compliance with recommended treatment. We discussed the risks, benefits and treatment alternatives, and the patient is interested in proceeding with surgery. We will try to set this up as expeditiously as possible. (2) Pain in right knee: Status: Acute (3) Posterior left knee pain: Status: Acute Advanced Care Planning Discussion Advance care planning discussed with:: patient Office Procedures GNS Level of Care Nursing/Assessment Patient Status: Established Patient Nursing Assessment/Reassesment: Medication Reconciliation, Update PMH in EMR and Vital Signs Coordination of Care: Complex Care and Chronic Disease 1-5, Education Complex Pt/Fam, Consent,records obtained, informed consent, Results/Orders obtained and Staff clarify orders Established Patient Charge Established Patient Point Assignment: 95 Established Patient Point Charge: Level 3 (80-115) MA Intake Visit Data Collection New Patient or Established: Established Patient (seen at [facility] within 3 years) Reason for Visit:: L KNEE PAIN Seen by Clinical Staff ONLY (RN/MA): No PCP or OBGYN visit in last 3 months: Yes Hx Now: No Do You Feel Safe at Home: Yes Authorities Contacted: N/A Questionairres Past Medical History Past Medical History Have you ever been diagnosed with any of the following: Neurological Problems Seizures: No Migraine: Yes Cardiology Problems Hypercholesterolemia: Yes (takes medication) Congestive Heart Failure: No Edema: No Cellulitis: No Hypertension: Yes (takes medication) Varicose Veins: No Respiratory Problems Chronic Obstructive Pulmonary Disease (COPD): No Asthma: Yes (asthma, takes inhaler regularly) Bronchitis: Yes Pneumonia: Yes Tuberculosis: No Sleep Apnea: No Smoking: No Smoking Cessation Counseling: No Smoking Exposure: No Tobacco Use: No Stomache/Intestinal Problems Hepatitis: No Colorectal Cancer: No Hemorrhoids: Yes (and constipation) Gastroesophageal Reflux Disease: Yes (takes medication) Obesity: Yes Genital/Urinary Problems Renal Disease: No Reproductive Problems Breast Cancer: No Pelvic Inflammatory Disease: No Previous Pregnancies: No Musculoskeletal Problems Bone Cancer: No Arthritis: Yes Carpal Tunnel Syndrome: No Fractures: No Head,Eye,Nose,Throat Problems Cataracts: Yes (Right eye) Deafness: Yes (wears hearing aid-bilateral) Endocrine Problems Diabetes Mellitus Type 1: No Diabetes Mellitus Type 2: Yes (takes medication) Hypothyroidism: Yes (takes medication) Blood Problems Anemia: Yes (takes medication) Psychologic Problems Schizophrenia: Yes (takes medication) Depression: Yes (takes medication) Anxiety: Yes (takes medication) Other Problems Hospitalization: Yes (knee replacement 2020) Shingles: Yes (2001) Falls: No Blood Transfusions: No Blood Transfusion Reaction: No Anesthesia Reactions: Yes (sensitive) Chemotherapy: No Radiation Therapy: No MRSA: No Chicken Pox: Yes (child) Measles: No Mumps: No Clostridium Difficile: No Cancer: No Cervical Cancer: No Lung Cancer: No Ovarian Cancer: No Surgical History Hysterectomy: No Pacemaker: No Subjective Visit Visit for: follow up visit and knee Immunization / Flu Flu Vaccine in the Last 12 Months: No Flu Vaccine Exclusion Criteria: No Exclusion Criteria History of Present Illness Chief complaint: Left knee pain Tab is a pleasant 69-year-old female with left knee pain. The left knee pain has been ongoing since surgery few years ago with Dr. Gomez. She reports that the pain on the posterior lateral aspect of her knee. She reports occasionally feels like it gives out. She reports that she is using a walker because she cannot trust her knee Personal History Red flag PMH: none Pain Pain level (0-10): 10 Pain duration: ALL DAY Pain location: inside (medial), outside (lateral) and anterior Pain quality: sharp, dull and aching Pain timing: night, increases with activity and stairs Associated signs & symptoms: numbness and weakness Ambulatory data Ambulatory device: none Walking distance (minutes): 1 Treatments Number of previous injections: 0 Improvement with previous injections: No Number of Physical Therapy sessions: 8 Improvement with PT: No Improvement with NSAIDS: no Review of Systems Review of Systems: All systems negative unless otherwise noted in HPI.
== END 2024-12-23 15:11 | disposition home or self-care (01) ==
LOC: HODSRG 13:58
PROVIDERS: PCP Nurse Practitioner Family; Referring Provider Nurse Practitioner Family; Supervising Provider Orthopaedic Surgery Adult Reconstructive Orthopaedic Surgery; Visit Provider Orthopaedic Surgery Adult Reconstructive Orthopaedic Surgery
DX: M25.562 Pain in left knee (principal); M25.561 Pain in right knee; M77.9 Enthesopathy, unspecified; I10 Essential (primary) hypertension; E78.00 Pure hypercholesterolemia, unspecified; K21.9 Gastro-esophageal reflux disease without esophagitis; E11.9 Type 2 diabetes mellitus without complications; E03.9 Hypothyroidism, unspecified; F20.9 Schizophrenia, unspecified; F32.A Depression, unspecified; F41.9 Anxiety disorder, unspecified
CPT/HCPCS: 99213; G0463

== ENCOUNTER → 2024-12-25 | Outpatient (CLI) | payer MEDICARE, MEDICAID, SELFPAY ==
[2024-12-25 13:17] LABS: Basophils # (Auto) 0.1 Thou/mm3 (0.0-0.2); Basophils % (Auto) 1 % (0-2.5); Eosinophils # (Auto) 0.1 Thou/mm3 (0.0-0.5); Eosinophils % (Auto) 1 % (0-10); Hematocrit 38.4 % (36.0-46.0); Hemoglobin 13.0 g/dL (12.0-16.0); Immature Granulocytes Auto 0.05 Thou/mm3 (0.00-0.00); Lymphocytes # (Auto) 3.4 Thou/mm3 (1.0-4.8); Lymphocytes % (Auto) 29 % (10-50); Mean Corpuscular HGB Conc 33.9 g/dl (31.0-37.0); Mean Corpuscular Hemoglobin 29.5 pg (25.0-35.0); Mean Corpuscular Volume 87 fL (80-100); Monocytes # (Auto) 0.9 Thou/mm3 (0.0-0.8); Monocytes % (Auto) 8 % (0-12); Neutrophils # (Auto) 7.1 Thou/mm3 (1.8-7.7); Neutrophils % (Auto) 61 % (37-80); Nucleated Red Blood Cell # 0.00 Thou/mm3 (0.00-0.00); Nucleated Red Blood Cell % 0 /100 WBC (0); Platelet Count 351 Thou/mm3 (140-440); RDW Standard Deviation 40.5 fL (36.4-46.3); Red Blood Count 4.41 Miln/mm3 (4.00-5.20); White Blood Count 11.6 Thou/mm3 (3.6-11.0)
[2024-12-25 13:19] LABS: Glucose Estimated Average 114 mg/dL (80-131); Hemoglobin A1C 5.6 % Hgb (4.8-6.0)
[2024-12-25 13:20] LABS: Alanine Aminotransferase 15 U/L (10-49); Albumin, Serum 4.8 gm/dL (3.4-4.8); Albumin/Globulin Ratio 1.9 (1.2-2.2); Alkaline Phosphatase 67 U/L (46-116); Anion Gap 8 (7-16); Aspartate Amino Transferase 19 U/L (0-34); BUN/Creatinine Ratio 22 Ratio (12-20); Bilirubin,Total 0.4 mg/dL (0.3-1.2); Blood Urea Nitrogen 20 mg/dL (9-23); Calcium 9.8 mg/dL (8.3-10.6); Calcium (Corrected) 9.8 mg/dL (8.5-10.1); Carbon Dioxide 29.3 mMol/L (20.0-31.0); Chloride 93 mMol/L (98-107); Creatinine (Component) 0.9 mg/dL (0.6-1.3); Globulin 2.5 gm/dL (2.3-3.5); Glucose 106 mg/dL (74-106); Osmolality,Calculated 263 (275-295); Potassium 4.3 mMol/L (3.4-5.1); Sodium 130 mMol/L (136-145); Total Protein 7.3 gm/dL (5.7-8.2); eGFR > 60 See Note
[2024-12-25 13:21] LABS: INR 1.0 (0.9-1.3); Partial Thromboplastin Time 24.7 Seconds (22.0-36.0); Prothrombin Time 11.1 Seconds (9.0-12.2)
== END | disposition home or self-care (01) ==
LOC: COPL 12:20
PROVIDERS: PCP Nurse Practitioner Family; Referring Provider Nurse Practitioner Family; Visit Provider Nurse Practitioner Family
DX: Z01.818 Encounter for other preprocedural examination (principal)
CPT/HCPCS: 36415; 80053; 83036; 85025; 85610; 85730

== ENCOUNTER → 2024-12-29 | Outpatient (CLI) | payer MEDICARE, MEDICAID, SELFPAY ==
[2024-12-29 11:32] LABS: C-Reactive Protein < 0.5 mg/dL (0.0-0.9)
[2024-12-29 11:55] LABS: Sed Rate (ESR) 11 mm/hr (0-30)
== END | disposition home or self-care (01) ==
PROVIDERS: PCP Nurse Practitioner Family; Referring Provider Orthopaedic Surgery Adult Reconstructive Orthopaedic Surgery; Visit Provider Orthopaedic Surgery Adult Reconstructive Orthopaedic Surgery
DX: M25.562 Pain in left knee (principal)
CPT/HCPCS: 36415; 85652; 86140

== ENCOUNTER 2025-01-19 06:40 | Inpatient (IN) | payer MEDICARE, MEDICAID, SELFPAY ==
--- NOTE | 2025-01-14 07:15 | EKG_ITS ---
[facility] Test Date: 2025-01-14 Pat Name: AKIN RAMIREZ Department: Room: - Gender: Female Gift Manager: NIDIA : 1955 Requested By: Orion Hull Order Number: [id number] Reading MD: Orion Hull Measurements Intervals Cut Off Rate: 90 P: 72 RI: 180 QRS: 2 QRSD: 126 T: 25 QT: 373 QTc: 458 Interpretive Statements SINUS RHYTHM POSSIBLE LEFT ATRIAL ENLARGEMENT [-0.1mV P WAVE IN V1/V2] RIGHT BUNDLE BRANCH BLOCK [120+ ms QRS DURATION, UPRIGHT V1, 40+ ms S IN I/aVL/V4/V5/V6] Compared to ECG 07/05/2022 11:32:20 Right bundle-branch block now present Incomplete right bundle-branch block no longer present Myocardial infarct finding no longer present /store/S0/[id number]/ecg/[id number].pdf
[2025-01-14 08:48] VITALS: BMI 33.1
--- NOTE | 2025-01-14 09:23 | SUR.PREOP ---
Pt has a bandage on her right big toe, pt stated instructor business education clean the area a week ago. the callous in under the toe and there is not open wound or drainage.
[2025-01-14 10:15] LABS: Basophils # (Auto) 0.1 Thou/mm3 (0.0-0.2); Basophils % (Auto) 1 % (0-2.5); Eosinophils # (Auto) 0.2 Thou/mm3 (0.0-0.5); Eosinophils % (Auto) 2 % (0-10); Hematocrit 41.6 % (36.0-46.0); Hemoglobin 14.0 g/dL (12.0-16.0); Immature Granulocytes Auto 0.05 Thou/mm3 (0.00-0.00); Lymphocytes # (Auto) 3.0 Thou/mm3 (1.0-4.8); Lymphocytes % (Auto) 26 % (10-50); Mean Corpuscular HGB Conc 33.7 g/dl (31.0-37.0); Mean Corpuscular Hemoglobin 29.2 pg (25.0-35.0); Mean Corpuscular Volume 87 fL (80-100); Monocytes # (Auto) 0.9 Thou/mm3 (0.0-0.8); Monocytes % (Auto) 8 % (0-12); Neutrophils # (Auto) 7.4 Thou/mm3 (1.8-7.7); Neutrophils % (Auto) 64 % (37-80); Nucleated Red Blood Cell # 0.00 Thou/mm3 (0.00-0.00); Nucleated Red Blood Cell % 0 /100 WBC (0); Platelet Count 353 Thou/mm3 (140-440); RDW Standard Deviation 40.7 fL (36.4-46.3); Red Blood Count 4.79 Miln/mm3 (4.00-5.20); White Blood Count 11.6 Thou/mm3 (3.6-11.0)
[2025-01-14 10:22] LABS: INR 1.0 (0.9-1.3); Partial Thromboplastin Time 24.8 Seconds (22.0-36.0); Prothrombin Time 10.6 Seconds (9.0-12.2)
[2025-01-14 10:26] LABS: Alanine Aminotransferase 16 U/L (10-49); Albumin, Serum 5.4 gm/dL (3.4-4.8); Albumin/Globulin Ratio 2.3 (1.2-2.2); Alkaline Phosphatase 85 U/L (46-116); Anion Gap 6 (7-16); Aspartate Amino Transferase 15 U/L (0-34); BUN/Creatinine Ratio 15 Ratio (12-20); Bilirubin,Total 0.3 mg/dL (0.3-1.2); Blood Urea Nitrogen 12 mg/dL (9-23); Calcium 10.2 mg/dL (8.3-10.6); Calcium (Corrected) 10.2 mg/dL (8.5-10.1); Carbon Dioxide 28.1 mMol/L (20.0-31.0); Chloride 99 mMol/L (98-107); Creatinine (Component) 0.8 mg/dL (0.6-1.3); Estimated Creatinine Clearance 66.6 mL/min (>60); Globulin 2.4 gm/dL (2.3-3.5); Glucose 103 mg/dL (74-106); Osmolality,Calculated 266 (275-295); Potassium 4.8 mMol/L (3.4-5.1); Sodium 133 mMol/L (136-145); Total Protein 7.8 gm/dL (5.7-8.2); eGFR > 60 See Note
[2025-01-19] VITALS (21 sets, daily range): BP systolic 118–155; BP diastolic 67–99; PULSE 79–99; RESP 14–20; TEMP 36.3–36.6; O2SAT 93–97; BMI 32.8
[2025-01-19] MEDS: MELOXICAM 7.5 MG TABLET PO (07:31)
[2025-01-19] MEDS: PREGABALIN 75 MG CAPSULE PO (07:33)
[2025-01-19] MEDS: ACETAMINOPHEN 325 MG TABLET 650 MG PO (07:34)
--- NOTE | 2025-01-19 07:39 | SUR.PREOP ---
Patient expressed gratitude for prayer before their procedure.
--- NOTE | 2025-01-19 10:07 | SUR.OPER ---
Implant: Orthos knee Vivacit-E highly crosslinked polyethylene Tibial bearing anterior stabalized () 67 mm width 18 mm thickness Ref: [id number] Lot: [id number] RUMA: [id number] Exp. 01/01/27 x 1
--- NOTE | 2025-01-19 10:28 | ESOP_ITS ---
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 She reports the pain is affecting her quality life and she is a lot of pain posteriorly. She was found to hyperextend to 10 to 15 degrees. She is also loose in flexion. Given the global instability, we discussed revision knee replacement. We discussed that we will try a poly exchange to a more constrained poly but it is very possible that we would need a full revision should this not provide enough stability. She understands the risk of surgery including infection, persistent instability. A sign with his consent was placed in the chart. Procedure in detail: The pre-existing incision was used. The knee was prepped and draped in usual sterile fashion. A surgical timeout was performed. After adequate anesthesia, we found that her range of motion was 15 degrees of hyperextension to 125 degrees. The knee was unstable particular with AP instability. The initial incision was incised and we raised flaps. A medial parapatellar approach was performed. We then performed cultures a synovectomy was performed for exposure. A medial release was then performed to better expose the tibia. The knee was found to be globally unstable. We removed the locking ring and removed the poly. We upsized the poly and trialed different polys. We found that the anterior stabilized polyprovided adequate stability at its maximum of 18 mm. He was found to have less than 1 mm of instability in both the AP and medial lateral plane she was found to get to 0 degrees of extension without hyperextension and was stable in flexion. We then irrigated the wound completely and make sure that no synovium was overlying the tibial baseplate. The rotation of the tibia was found to be appropriate facing the medial one third of the tibial tubercle. The femur was also adequately rotated we then inserted the final tibial polyethylene insert that it was seated and inserted the locking ring. The patient was closed in the usual fashion with 0 Vicryl, 2- 0 Vicryl, and Monocryl Weightbearing as tolerated Antibiotics Anesthesia GETA Implants 18 mm anterior stabilized poly- Pathology / specimen None Pathology comment: none Estimated Blood Loss 75 Condition Stable Disposition same day Surgeon Abrahan Rollins MD Surgical Staff Operation Date: 01/19/25 10:15 Case Staff FILLER SHREDDER HELPER: Anthony Zacarias RNextractor tender raw stock: Kylah Smith
--- NOTE | 2025-01-19 10:34 | XR_ITS ---
Examination: Left knee 2 views Technique one AP lateral left knee 2 views Date and time: January 19, 2025 1121 hours INDICATIONS: Postop knee replacement FINDINGS: Total left knee arthroplasty. Satisfactory alignment No fracture IMPRESSION: Total left knee arthroplasty with satisfactory alignment
--- NOTE | 2025-01-19 11:00 | SUR.PHASEI ---
pt received from OR in recovery bay 5. pt awake and alert, breathing unlabored on room air. v/s stable. pt dressing to left lower extremity cdi. report received from Pillo COSME and Brad DAIGLE.
[2025-01-19] MEDS: ONDANSETRON INJ 2 MG/ML INJ 2 ML 4 MG IVP (11:25)
--- NOTE | 2025-01-19 12:02 | SUR.PHASEII ---
pt able to tolerate ice chips without difficulty swallowing or nausea/vomiting.
--- NOTE | 2025-01-19 12:19 | SUR.PHASEII ---
pt awake, alert, able to follow commands, breathing unlabored, dressing to left lower extremity clean, dry, and intact, pt tolerating ice chips without difficulty swallowing or n/v, VS stable, report to Sen DAIGLE
[2025-01-19] MEDS: ACETAMINOPHEN IVPB 1,000 MG/100 ML VIAL 250 MG IV (12:50)
--- NOTE | 2025-01-19 12:51 | SUR.PHASEII ---
report to Sen DAIGLE
[2025-01-19] MEDS: fentaNYL CIT INJ 50 mCg/ML AMP 2ML IVP ×2 (14:29→16:47)
--- NOTE | 2025-01-19 17:50 | SUR.PHASEII ---
pt awake and alert, breathing unlabored on room air. v/s stable. pt dressing to left lower extremity cdi. pt cleared by physical therapist Vasyl. pt able to ambulate using walker to bathroom. d/c instructions given with Carmelo in room, all questions answered. pt d/c via wheelchair with all belongings.
== END 2025-01-19 17:50 | disposition home or self-care (01) | DRG 489 ==
PROVIDERS: Anesthesiology; Admitting Provider Orthopaedic Surgery Adult Reconstructive Orthopaedic Surgery; PCP Nurse Practitioner Family; Visit Provider Orthopaedic Surgery Adult Reconstructive Orthopaedic Surgery
PROC: 0SPD09Z Removal of Liner from Left Knee Joint, Open Approach (ICD-10-PCS; principal; 2025-01-19 10:00)
DX: M23.52 Chronic instability of knee, left knee (principal); M25.362 Other instability, left knee
CPT/HCPCS: 36415; 73560; 80053; 85025; 85610; 85730; 87070; 87075; 87077; 87186; 87205; 93005; 97163; A4217; A4649; C1776; J0131; J0690; J2250; J2405; J2704; J2795; J3010; J7030; J7999; A4648; A9270

== ENCOUNTER → 2025-01-27 | Outpatient (CLI) | payer MEDICARE, MEDICAID, SELFPAY ==
[2025-01-27 16:35] LABS: Basophils # (Auto) 0.1 Thou/mm3 (0.0-0.2); Basophils % (Auto) 1 % (0-2.5); Eosinophils # (Auto) 0.8 Thou/mm3 (0.0-0.5); Eosinophils % (Auto) 6 % (0-10); Hematocrit 37.5 % (36.0-46.0); Hemoglobin 12.6 g/dL (12.0-16.0); Immature Granulocytes Auto 0.08 Thou/mm3 (0.00-0.00); Lymphocytes # (Auto) 4.4 Thou/mm3 (1.0-4.8); Lymphocytes % (Auto) 32 % (10-50); Mean Corpuscular HGB Conc 33.6 g/dl (31.0-37.0); Mean Corpuscular Hemoglobin 29.4 pg (25.0-35.0); Mean Corpuscular Volume 88 fL (80-100); Monocytes # (Auto) 1.1 Thou/mm3 (0.0-0.8); Monocytes % (Auto) 8 % (0-12); Neutrophils # (Auto) 7.2 Thou/mm3 (1.8-7.7); Neutrophils % (Auto) 52 % (37-80); Nucleated Red Blood Cell # 0.00 Thou/mm3 (0.00-0.00); Nucleated Red Blood Cell % 0 /100 WBC (0); Platelet Count 355 Thou/mm3 (140-440); RDW Standard Deviation 41.3 fL (36.4-46.3); Red Blood Count 4.28 Miln/mm3 (4.00-5.20); White Blood Count 13.7 Thou/mm3 (3.6-11.0)
[2025-01-27 16:52] LABS: Alanine Aminotransferase 18 U/L (10-49); Albumin, Serum 4.5 gm/dL (3.4-4.8); Albumin/Globulin Ratio 2.0 (1.2-2.2); Alkaline Phosphatase 70 U/L (46-116); Anion Gap 9 (7-16); Aspartate Amino Transferase 22 U/L (0-34); BUN/Creatinine Ratio 21 Ratio (12-20); Bilirubin,Total 0.5 mg/dL (0.3-1.2); Blood Urea Nitrogen 17 mg/dL (9-23); Calcium 9.6 mg/dL (8.3-10.6); Calcium (Corrected) 9.6 mg/dL (8.5-10.1); Carbon Dioxide 28.7 mMol/L (20.0-31.0); Chloride 94 mMol/L (98-107); Creatinine (Component) 0.8 mg/dL (0.6-1.3); Globulin 2.2 gm/dL (2.3-3.5); Glucose 97 mg/dL (74-106); Osmolality,Calculated 266 (275-295); Potassium 4.6 mMol/L (3.4-5.1); Sodium 132 mMol/L (136-145); Total Protein 6.7 gm/dL (5.7-8.2); eGFR > 60 See Note
== END | disposition home or self-care (01) ==
LOC: COPL 15:53
PROVIDERS: PCP Nurse Practitioner Family; Referring Provider Internal Medicine Nephrology; Visit Provider Internal Medicine Nephrology
DX: I12.9 Hypertensive chronic kidney disease with stage 1 through stage 4 chronic kidney disease, or unspecified chronic kidney disease (principal); N18.30 Chronic kidney disease, stage 3 unspecified; D64.9 Anemia, unspecified; E87.1 Hypo-osmolality and hyponatremia
CPT/HCPCS: 36415; 80053; 85025

== ENCOUNTER 2025-02-03 12:49 | Outpatient (AMB) | payer MEDICARE, MEDICAID, SELFPAY ==
[2025-02-03 13:07] VITALS: BP 131/85; PULSE 109; RESP 19; TEMP 35.9; O2SAT 92; BMI 33.5
--- NOTE | 2025-02-03 13:07 | ORTHONT_ITS ---
Vital signs 02/03/25 13:07 Height 1.6 m Height Method Stated Weight 85.842 kg Weight Measurement Method Standing Scale BMI 33.5 BP 131/85 H Blood Pressure Source Automatic Cuff Blood Pressure Location Left Upper Arm Position Sitting Respiration 19 Pulse 109 H Pulse Source Monitor Temp 96.7 F L Temp Source Temporal Artery Scan Pulse Oximetry (%) 92 L Oxygen Delivery Method Room Air Med/Allergies Allergies & Medications Allergies codeine Allergy (Mild, Verified 02/03/25 13:08) Nausea Medication Reconciliation atorvastatin 10 mg tablet 10 mg PO QDAY 06/28/18 [History Confirmed 02/03/25] clonazepam 0.5 mg tablet 0.5 mg PO HS 06/28/18 [History Confirmed 02/03/25] levothyroxine 75 mcg tablet 75 mcg PO QDAY 06/28/18 [History Confirmed 02/03/25] olanzapine 15 mg tablet 15 mg PO DAILY 06/28/18 [History Confirmed 02/03/25] pantoprazole 40 mg tablet,delayed release 40 mg PO QDAY 06/28/18 [History Confirmed 02/03/25] lisinopril 20 mg tablet 10 mg PO QDAY 03/11/21 [History Confirmed 02/03/25] metformin 500 mg tablet 500 mg PO QDAY 03/11/21 [History Confirmed 02/03/25] acetaminophen 325 mg tablet (Tylenol) 650 mg PO BID PRN Pain 07/05/22 [History Confirmed 02/03/25] amlodipine 10 mg tablet 10 mg PO DAILY 07/05/22 [History Confirmed 02/03/25] ferrous sulfate 325 mg (65 mg iron) tablet 325 mg PO BID 07/05/22 [History Confirmed 02/03/25] tramadol 50 mg tablet 50 mg PO BID PRN Pain 07/05/22 [History Confirmed 02/03/25] bupropion HCl 100 mg tablet,12 hr sustained-release 100 mg PO QAM 01/14/25 [History Confirmed 02/03/25] cinacalcet 30 mg tablet 30 mg PO QDAY 01/14/25 [History Confirmed 02/03/25] dapagliflozin propanediol 5 mg tablet (Farxiga) 5 mg PO QAM 01/14/25 [History Confirmed 02/03/25] finerenone 10 mg tablet (Kerendia) 10 mg PO QDAY 01/14/25 [History Confirmed 02/03/25] lidocaine 5 % topical patch 1 patch topical Q24H 01/14/25 [History Confirmed 02/03/25] linaclotide 290 mcg capsule (Linzess) 290 mcg PO QAM 01/14/25 [History Confirmed 02/03/25] loperamide 2 mg capsule 2 mg PO Q6H PRN loose stool 01/14/25 [History Confirmed 02/03/25] loratadine 10 mg tablet 10 mg PO QDAY 01/14/25 [History Confirmed 02/03/25] ondansetron HCl 4 mg tablet 4 mg PO Q8H PRN nausea and vomiting 01/14/25 [History Confirmed 02/03/25] torsemide 20 mg tablet 20 mg PO QAM 01/14/25 [History Confirmed 02/03/25] aspirin 81 mg tablet,delayed release 81 mg PO BID #60 tabs 01/19/25 [Rx Confir med 02/03/25] doxycycline hyclate 100 mg tablet 100 mg PO BID #14 tabs 01/19/25 [Rx Confirmed 02/03/25] sennosides 8.6 mg-docusate sodium 50 mg tablet (Senna-S) 1 tab-cap PO QDAY #30 tabs 01/19/25 [Rx Confirmed 02/03/25] acetaminophen 500 mg tablet (Acetaminophen Extra Strength) 1,000 mg (2 x 500 mg) PO Q6H PRN pain #90 tabs 01/26/25 [Rx Confirmed 02/03/25] gabapentin 300 mg capsule 300 mg PO .qhs #30 caps 01/26/25 [Rx Confirmed 02/03/25] hydroxyzine HCl 10 mg tablet 10 mg PO TID PRN itching #20 tabs 02/03/25 [Rx] oxycodone 5 mg tablet 5 mg PO Q6H PRN pain #28 tabs 02/03/25 [Rx] Exam Exam Patient is in no acute distress and is cooperative with the examination today. Breathing is nonlabored. Patient has a normal mood and affect. The patient has a gait that is nonantalgic Bilateral extremities were evaluated and demonstrates sensation intact to light touch. Palpable pedal pulses are present. No significant edema is present. Bilateral hips were examined. The patient has no pain with log roll of the hips. Internal rotation to 30 degrees and external rotation to 30 degrees is painless. Negative FADIR. Right knee was examined today. The right knee is in reasonable alignment. Range of motion from 0-120 degrees. Knee is stable to varus and valgus as well as AP translation with <5mm. Incision is clean dry and intact Left knee was examined today.Left knee incision is clean dry intact. Knee feels stable to varus valgus stress as well as AP translation Assessment and Plan Problem List (1) Tendonitis: Status: Acute Plan: Patient Is a 69-year-old female with bilateral knee pain. The pain is improved significantly with rest and anti-inflammatories. We discussed continued conservative treatment. We upsize her poly and she is doing well. We will see her back in 4 weeks for routine follow-up. She would like to start outpatient physical therapy in 2 weeks and would like to continue with home pt for now (2) Pain in right knee: Status: Acute (3) Posterior left knee pain: Status: Acute Advanced Care Planning Discussion Advance care planning discussed with:: patient Office Procedures GNS Level of Care Nursing/Assessment Patient Status: Established Patient Nursing Assessment/Reassesment: Medication Reconciliation, Update PMH in EMR and Vital Signs Coordination of Care: Complex Care and Chronic Disease 1-5, Education Complex Pt/Fam, Consent,records obtained, informed consent, Results/Orders obtained and Staff clarify orders Established Patient Charge Established Patient Point Assignment: 95 Established Patient Point Charge: EP Level 3 (80-115) MA Intake Visit Data Collection New Patient or Established: Established Patient (seen at [facility] within 3 years) Reason for Visit:: L KNEE PAIN Seen by Clinical Staff ONLY (RN/MA): No PCP or OBGYN visit in last 3 months: Yes Hx Now: No Do You Feel Safe at Home: Yes Authorities Contacted: N/A Questionairres Past Medical History Past Medical History Have you ever been diagnosed with any of the following: Neurological Problems Seizures: No Migraine: No Cardiology Problems Peripheral Vascular Disease: Yes Hypercholesterolemia: Yes Congestive Heart Failure: No Edema: No Cellulitis: No Hypertension: Yes Varicose Veins: Yes Respiratory Problems Chronic Obstructive Pulmonary Disease (COPD): No Asthma: Yes Bronchitis: Yes Pneumonia: Yes Tuberculosis: No Sleep Apnea: No Smoking: No Smoking Cessation Counseling: No Smoking Exposure: No Tobacco Use: No Stomache/Intestinal Problems Hepatitis: No Colorectal Cancer: No Hemorrhoids: Yes (and constipation) Gastroesophageal Reflux Disease: Yes (takes medication) Obesity: Yes Genital/Urinary Problems Renal Disease: No Reproductive Problems Breast Cancer: No Pelvic Inflammatory Disease: No Previous Pregnancies: No Musculoskeletal Problems Bone Cancer: No Arthritis: Yes Carpal Tunnel Syndrome: No Fractures: No Head,Eye,Nose,Throat Problems Cataracts: Yes (Bilateral) Deafness: Yes (wears hearing aid-bilateral) Endocrine Problems Diabetes Mellitus Type 1: No Diabetes Mellitus Type 2: Yes (takes medication) Hypothyroidism: Yes (takes medication) Blood Problems Anemia: Yes (takes medication) Psychologic Problems Schizophrenia: Yes Depression: Yes (takes medication) Anxiety: Yes (takes medication) Other Problems Hospitalization: Yes (knee replacement 2020) Shingles: Yes (2001) Falls: No Blood Transfusions: No Blood Transfusion Reaction: No Anesthesia Reactions: Yes (Nausea with anesthesia.) Chemotherapy: No Radiation Therapy: No MRSA: No Chicken Pox: Yes (child) Measles: No Mumps: No Clostridium Difficile: No Cancer: No Cervical Cancer: No Lung Cancer: No Ovarian Cancer: No Surgical History Hysterectomy: No Pacemaker: No Subjective Visit Visit for: follow up visit and knee Immunization / Flu Flu Vaccine in the Last 12 Months: No Flu Vaccine Exclusion Criteria: No Exclusion Criteria History of Present Illness Chief complaint: Left knee pain Tab is a pleasant 69-year-old female with left knee pain. The left knee pain has been ongoing since surgery few years ago with Dr. Gomez. She reports that the pain on the posterior lateral aspect of her knee. She reports occasionally feels like it gives out. She reports that she is using a walker because she cannot trust her knee Personal History Red flag PMH: none Pain Pain level (0-10): 10 Pain duration: ALL DAY Pain location: inside (medial), outside (lateral) and anterior Pain quality: sharp, dull and aching Pain timing: night, increases with activity and stairs Associated signs & symptoms: numbness and weakness Ambulatory data Ambulatory device: none Walking distance (minutes): 1 Treatments Number of previous injections: 0 Improvement with previous injections: No Number of Physical Therapy sessions: 8 Improvement with PT: No Improvement with NSAIDS: no Review of Systems Review of Systems: All systems negative unless otherwise noted in HPI.
== END 2025-02-03 13:16 | disposition home or self-care (01) ==
PROVIDERS: PCP Nurse Practitioner Family; Referring Provider Nurse Practitioner Family; Supervising Provider Orthopaedic Surgery Adult Reconstructive Orthopaedic Surgery; Visit Provider Orthopaedic Surgery Adult Reconstructive Orthopaedic Surgery
DX: M77.9 Enthesopathy, unspecified (principal); M25.562 Pain in left knee; M25.561 Pain in right knee
CPT/HCPCS: 99213; G0463

== ENCOUNTER → 2025-03-03 | Outpatient (CLI) | payer MEDICARE, MEDICAID, SELFPAY ==
[2025-03-03 14:02] LABS: Basophils # (Auto) 0.1 Thou/mm3 (0.0-0.2); Basophils % (Auto) 1 % (0-2.5); Eosinophils # (Auto) 0.2 Thou/mm3 (0.0-0.5); Eosinophils % (Auto) 2 % (0-10); Hematocrit 38.4 % (36.0-46.0); Hemoglobin 13.0 g/dL (12.0-16.0); Immature Granulocytes Auto 0.03 Thou/mm3 (0.00-0.00); Lymphocytes # (Auto) 4.0 Thou/mm3 (1.0-4.8); Lymphocytes % (Auto) 38 % (10-50); Mean Corpuscular HGB Conc 33.9 g/dl (31.0-37.0); Mean Corpuscular Hemoglobin 29.0 pg (25.0-35.0); Mean Corpuscular Volume 86 fL (80-100); Monocytes # (Auto) 0.8 Thou/mm3 (0.0-0.8); Monocytes % (Auto) 7 % (0-12); Neutrophils # (Auto) 5.5 Thou/mm3 (1.8-7.7); Neutrophils % (Auto) 52 % (37-80); Nucleated Red Blood Cell # 0.00 Thou/mm3 (0.00-0.00); Nucleated Red Blood Cell % 0 /100 WBC (0); Platelet Count 382 Thou/mm3 (140-440); RDW Standard Deviation 41.3 fL (36.4-46.3); Red Blood Count 4.48 Miln/mm3 (4.00-5.20); White Blood Count 10.5 Thou/mm3 (3.6-11.0)
[2025-03-03 14:08] LABS: Parathyroid Hormone Intact 69.5 pg/ml (18.5-88.0)
[2025-03-03 14:24] LABS: Alanine Aminotransferase 10 U/L (10-49); Albumin, Serum 5.1 gm/dL (3.4-4.8); Albumin/Globulin Ratio 2.2 (1.2-2.2); Alkaline Phosphatase 75 U/L (46-116); Anion Gap 8 (7-16); Aspartate Amino Transferase 15 U/L (0-34); BUN/Creatinine Ratio 14 Ratio (12-20); Bilirubin,Total 0.4 mg/dL (0.3-1.2); Blood Urea Nitrogen 10 mg/dL (9-23); Calcium 10.1 mg/dL (8.3-10.6); Calcium (Corrected) 10.1 mg/dL (8.5-10.1); Carbon Dioxide 25.9 mMol/L (20.0-31.0); Chloride 98 mMol/L (98-107); Creatinine (Component) 0.7 mg/dL (0.6-1.3); Globulin 2.3 gm/dL (2.3-3.5); Glucose 97 mg/dL (74-106); Osmolality,Calculated 263 (275-295); Phosphorous 4.0 mg/dL (2.4-5.1); Potassium 4.6 mMol/L (3.4-5.1); Sodium 132 mMol/L (136-145); Total Protein 7.4 gm/dL (5.7-8.2); eGFR > 60 See Note
[2025-03-03 17:13] LABS: Creatinine MALB Rnd Ur 42 mg/dL (30-125); Microalbumin Creat Ratio 14 mg/gCrea (<30); Microalbumin, Random Urine 6 mg/L (0-300)
== END | disposition home or self-care (01) ==
PROVIDERS: PCP Nurse Practitioner Family; Referring Provider Internal Medicine Nephrology; Visit Provider Internal Medicine Nephrology
DX: N04.9 Nephrotic syndrome with unspecified morphologic changes (principal); E21.3 Hyperparathyroidism, unspecified; D64.9 Anemia, unspecified
CPT/HCPCS: 36415; 80053; 82043; 82570; 83970; 84100; 85025

== ENCOUNTER 2025-03-05 12:58 | Outpatient (AMB) | payer MEDICARE, MEDICAID, SELFPAY ==
--- NOTE | 2025-03-05 13:13 | PD.ORTHCLVIS ---
Vital signs 03/05/25 13:14 Height 1.6 m Height Method Stated Weight 84.964 kg Weight Measurement Method Standing Scale BMI 33.2 BP 121/73 Blood Pressure Source Automatic Cuff Blood Pressure Location Left Upper Arm Position Sitting Respiration 18 Pulse 90 Pulse Source Monitor Temp 97.7 F Temp Source Temporal Artery Scan Pulse Oximetry (%) 94 L Oxygen Delivery Method Room Air Med/Allergies Allergies & Medications Allergies codeine Allergy (Mild, Verified 03/05/25 13:14) Nausea Medication Reconciliation atorvastatin 10 mg tablet 10 mg PO QDAY 06/28/18 [History Confirmed 03/05/25] clonazepam 0.5 mg tablet 0.5 mg PO HS 06/28/18 [History Confirmed 03/05/25] levothyroxine 75 mcg tablet 75 mcg PO QDAY 06/28/18 [History Confirmed 03/05/25] olanzapine 15 mg tablet 15 mg PO DAILY 06/28/18 [History Confirmed 03/05/25] pantoprazole 40 mg tablet,delayed release 40 mg PO QDAY 06/28/18 [History Confirmed 03/05/25] lisinopril 20 mg tablet 10 mg PO QDAY 03/11/21 [History Confirmed 03/05/25] metformin 500 mg tablet 500 mg PO QDAY 03/11/21 [History Confirmed 03/05/25] acetaminophen 325 mg tablet (Tylenol) 650 mg PO BID PRN Pain 07/05/22 [History Confirmed 03/05/25] amlodipine 10 mg tablet 10 mg PO DAILY 07/05/22 [History Confirmed 03/05/25] ferrous sulfate 325 mg (65 mg iron) tablet 325 mg PO BID 07/05/22 [History Confirmed 03/05/25] tramadol 50 mg tablet 50 mg PO BID PRN Pain 07/05/22 [History Confirmed 03/05/25] bupropion HCl 100 mg tablet,12 hr sustained-release 100 mg PO QAM 01/14/25 [History Confirmed 03/05/25] cinacalcet 30 mg tablet 30 mg PO QDAY 01/14/25 [History Confirmed 03/05/25] dapagliflozin propanediol 5 mg tablet (Farxiga) 5 mg PO QAM 01/14/25 [History Confirmed 03/05/25] finerenone 10 mg tablet (Kerendia) 10 mg PO QDAY 08/06/25 [History Confirmed 03/05/25] lidocaine 5 % topical patch 1 patch topical Q24H 01/14/25 [History Confirmed 03/05/25] linaclotide 290 mcg capsule (Linzess) 290 mcg PO QAM 01/14/25 [History Confirmed 03/05/25] loperamide 2 mg capsule 2 mg PO Q6H PRN loose stool 01/14/25 [History Confirmed 03/05/25] loratadine 10 mg tablet 10 mg PO QDAY 01/14/25 [History Confirmed 03/05/25] ondansetron HCl 4 mg tablet 4 mg PO Q8H PRN nausea and vomiting 01/14/25 [History Confirmed 03/05/25] torsemide 20 mg tablet 20 mg PO QAM 01/14/25 [History Confirmed 03/05/25] aspirin 81 mg tablet,delayed release 81 mg PO BID #60 tabs 01/19/25 [Rx Confirmed 03/05/25] doxycycline hyclate 100 mg tablet 100 mg PO BID #14 tabs 01/19/25 [Rx Confirmed 03/05/25] sennosides 8.6 mg-docusate sodium 50 mg tablet (Senna-S) 1 tab-cap PO QDAY #30 tabs 01/19/25 [Rx Confirmed 03/05/25] acetaminophen 500 mg tablet (Acetaminophen Extra Strength) 1,000 mg (2 x 500 mg) PO Q6H PRN pain #90 tabs 01/26/25 [Rx Confirmed 03/05/25] gabapentin 300 mg capsule 300 mg PO .qhs #30 caps 01/26/25 [Rx Confirmed 03/05/25] hydroxyzine HCl 10 mg tablet 10 mg PO TID PRN itching #20 tabs 02/03/25 [Rx Confirmed 03/05/25] oxycodone 5 mg tablet 5 mg PO Q6H PRN pain #28 tabs 02/03/25 [Rx Confirmed 03/05/25] Exam Exam Patient is in no acute distress and is cooperative with the examination today. Breathing is nonlabored. Patient has a normal mood and affect. The patient has a gait that is nonantalgic Bilateral extremities were evaluated and demonstrates sensation intact to light touch. Palpable pedal pulses are present. No significant edema is present. Bilateral hips were examined. The patient has no pain with log roll of the hips. Internal rotation to 30 degrees and external rotation to 30 degrees is painless. Negative FADIR. Right knee was examined today. The right knee is in reasonable alignment. Range of motion from 0-120 degrees. Knee is stable to varus and valgus as well as AP translation with <5mm. Incision is clean dry and intact Left knee was examined today.Left knee incision is clean dry intact. Knee feels stable to varus valgus stress as well as AP translation Assessment and Plan Problem List (1) Tendonitis: Status: Acute (2) Pain in right knee: Status: Acute (3) Posterior left knee pain: Status: Acute Plan: ASSESSMENT AND PLAN 1. Postoperative status following left revision knee replacement: Generalized aches are reported at night, but there is no specific pain in the back of the knee. The knee appears less swollen than the right side. Stability has improved with physical therapy, which is ongoing and beneficial. Continue with the current physical therapy regimen. If pain persists or worsens, consider another hydrocortisone injection after 3 months. Patient education included reassurance about the current progress and the importance of continuing physical therapy. Follow-up: A follow-up appointment is scheduled for 3 months from now. Advanced Care Planning Discussion Advance care planning discussed with:: patient Office Procedures GNS Level of Care Nursing/Assessment Patient Status: Established Patient Nursing Assessment/Reassesment: Medication Reconciliation, Update PMH in EMR and Vital Signs Coordination of Care: Complex Care and Chronic Disease 1-5, Education Complex Pt/Fam, Consent,records obtained, informed consent, Results/Orders obtained and Staff clarify orders Established Patient Charge Established Patient Point Assignment: 95 Established Patient Point Charge: EP Level 3 (80-115) MA Intake Visit Data Collection New Patient or Established: Established Patient (seen at [facility] within 3 years) Reason for Visit:: L KNEE PAIN TKA FU Seen by Clinical Staff ONLY (RN/MA): No PCP or OBGYN visit in last 3 months: Yes Hx Now: No Do You Feel Safe at Home: Yes Authorities Contacted: N/A Questionairres Past Medical History Past Medical History Have you ever been diagnosed with any of the following: Neurological Problems Seizures: No Migraine: No Cardiology Problems Peripheral Vascular Disease: Yes Hypercholesterolemia: Yes Congestive Heart Failure: No Edema: No Cellulitis: No Hypertension: Yes Varicose Veins: Yes Respiratory Problems Chronic Obstructive Pulmonary Disease (COPD): No Asthma: Yes Bronchitis: Yes Pneumonia: Yes Tuberculosis: No Sleep Apnea: No Smoking: No Smoking Cessation Counseling: No Smoking Exposure: No Tobacco Use: No Stomache/Intestinal Problems Hepatitis: No Colorectal Cancer: No Hemorrhoids: Yes (and constipation) Gastroesophageal Reflux Disease: Yes (takes medication) Obesity: Yes Genital/Urinary Problems Renal Disease: No Reproductive Problems Breast Cancer: No Pelvic Inflammatory Disease: No Previous Pregnancies: No Musculoskeletal Problems Bone Cancer: No Arthritis: Yes Carpal Tunnel Syndrome: No Fractures: No Head,Eye,Nose,Throat Problems Cataracts: Yes (Bilateral) Deafness: Yes (wears hearing aid-bilateral) Endocrine Problems Diabetes Mellitus Type 1: No Diabetes Mellitus Type 2: Yes (takes medication) Hypothyroidism: Yes (takes medication) Blood Problems Anemia: Yes (takes medication) Psychologic Problems Schizophrenia: Yes Depression: Yes (takes medication) Anxiety: Yes (takes medication) Other Problems Hospitalization: Yes (knee replacement 2020) Shingles: Yes (2001) Falls: No Blood Transfusions: No Blood Transfusion Reaction: No Anesthesia Reactions: Yes (Nausea with anesthesia.) Chemotherapy: No Radiation Therapy: No MRSA: No Chicken Pox: Yes (child) Measles: No Mumps: No Clostridium Difficile: No Cancer: No Cervical Cancer: No Lung Cancer: No Ovarian Cancer: No Surgical History Hysterectomy: No Pacemaker: No Subjective Visit Visit for: follow up visit and knee Immunization / Flu Flu Vaccine in the Last 12 Months: No Flu Vaccine Exclusion Criteria: No Exclusion Criteria History of Present Illness Chief complaint: Left knee pain HISTORY OF PRESENT ILLNESS IAbrahan, have obtained verbal consent from the patient, to be recorded during this encounter which may include, but not limited to, medical history, examination, treatment plans, and relevant health information.? Patient was informed that recording will be read and reviewed by myself before inclusion in the medical chart. The patient is a pleasant 70-year-old female who is status post left revision knee replacement for instability. She is currently 6 weeks post-surgery and reports feeling well overall. She experiences pain at night, which she describes as a generalized ache from the surgery. She no longer feels the pain that used to bother her in the back of her knee. She has been attending physical therapy sessions, with the most recent one being yesterday. She notes an improvement in the stability of her knee. She received a hydrocortisone injection 2 to 3 months ago, which initially provided relief, but the pain has since returned. However, she mentions that the pain is not as severe as it was prior to the injection. She also mentions some minor skin breakouts, which have largely resolved after using the prescribed medication. PAST SURGICAL HISTORY: Left revision knee replacement for instability. Personal History Red flag PMH: none Pain Pain level (0-10): 10 Pain duration: ALL DAY Pain location: inside (medial), outside (lateral) and anterior Pain quality: sharp, dull and aching Pain timing: night, increases with activity and stairs Associated signs & symptoms: numbness and weakness Ambulatory data Ambulatory device: none Walking distance (minutes): 1 Treatments Number of previous injections: 0 Improvement with previous injections: No Number of Physical Therapy sessions: 8 Improvement with PT: No Improvement with NSAIDS: no Review of Systems Review of Systems: All systems negative unless otherwise noted in HPI.
[2025-03-05 13:14] VITALS: BP 121/73; PULSE 90; RESP 18; TEMP 36.5; O2SAT 94; BMI 33.2
== END 2025-03-05 13:22 | disposition home or self-care (01) ==
LOC: HODSRG 12:58
PROVIDERS: PCP Nurse Practitioner Family; Referring Provider Nurse Practitioner Family; Supervising Provider Orthopaedic Surgery Adult Reconstructive Orthopaedic Surgery; Visit Provider Orthopaedic Surgery Adult Reconstructive Orthopaedic Surgery
DX: M77.9 Enthesopathy, unspecified (principal); M25.561 Pain in right knee; M25.562 Pain in left knee; I10 Essential (primary) hypertension; E78.00 Pure hypercholesterolemia, unspecified; K21.9 Gastro-esophageal reflux disease without esophagitis; E11.9 Type 2 diabetes mellitus without complications; E03.9 Hypothyroidism, unspecified; E66.9 Obesity, unspecified; Z68.33 Body mass index [BMI] 33.0-33.9, adult; F32.A Depression, unspecified; F41.9 Anxiety disorder, unspecified; Z96.652 Presence of left artificial knee joint
CPT/HCPCS: 99213; G0463

== ENCOUNTER 2025-03-10 14:00 | Outpatient (RCR) | payer MEDICARE, MEDICAID, SELFPAY ==
--- NOTE | 2025-03-02 13:26 | PT.OIERPT ---
PT OP Initial Eval Patient Information Outpatient Physical Therapy Treatment Date: 03/02/25 Visit Reasons: left TKA Medical Diagnosis: L knee instability Treatment Dx #1: L knee pain Treatment Dx #2: L knee weakness Start of Care: 03/02/25 Date of Onset: 01/19/25 Smoking Status Smoking Status: Never smoker Initial Assessment Subjective: Pt is 70 yr old female s/p L knee revision presents ambulating with a FWW that she has been using for 4 yrs. She reports less pain and more strength of L knee since the surgery. PLOF: pt has been using FWW for 4 years and was doing HH chores and ambulating limited community distances with L knee pain prior to this recent knee revision. PMH: HTN, DM, hpothyroidism, B TKA Pt goal: more L knee strength Objective: L?knee AROM: ? Flexion: 110 deg ? Extension: full ? SLR: ? 35 deg ? Strength: ? Quads and hamstrings 4-/5 Assessment: Pt presentation consistent with post op TKA with decreased ROM, strength ? and WB tolerance. Pt requires skilled therapy to improve ROM ? and strength and has good rehab potential.? Eval followed by HEP with printout. Short Term and Skilled Nursing Goals 1.? Ind with HEP 2.? Improved knee ROM to 115 deg flexion 3.? Improved quad and hamstring strength to 4+/5 4.? Improved ambulatory tolerance to community distances with symmetrical gait pattern Treatment Plan 1. Manual therapy 2. Therex ? 3. Modalities as indicated, moist heat, ice, estim Frequency and Duration: 2x a week for 18 visits plus evaluation Certification Dates: 03/02/25 to 05/30/25 Procedure Charges OP PT Eval Mod Complex 30 minutes: Yes
--- NOTE | 2025-03-04 14:31 | PT.ODAYNRPT ---
PT Outpatient Daily Note OP Daily Note Outpatient Physical Therapy Treatment Date: 03/04/25 Visit Reasons: left TKA Subjective: Pt denies pain to L knee today. Objective: See F/S for therex performed Assessment: Required sitting rest breaks due to fatigue. Min vc's required to avoid trunk lean way 3-way hip exercise. Good tolerance and appropriate fatigue with therex. Plan: Continue with POC Length of Time (minutes) of Treatment: 30 Minutes Procedure Charges Therapeutic Exercise 30 minutes: Yes
--- NOTE | 2025-03-10 14:43 | PT.ODAYNRPT ---
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 Objective: See F/S for therex performed Assessment: Progressed to 2lb ankle weight for LAQ exercise; good tolerance with appropriate fatigue. Demo'd improvement with endurance, less rest break required due to fatigue. Plan: Continue with POC Length of Time (minutes) of Treatment: 30 Minutes Procedure Charges Therapeutic Exercise 30 minutes: Yes
== END 2025-03-10 23:59 | disposition home or self-care (01) ==
LOC: CPTX 14:00
PROVIDERS: PCP Nurse Practitioner Family; Referring Provider Orthopaedic Surgery Adult Reconstructive Orthopaedic Surgery; Visit Provider Orthopaedic Surgery Adult Reconstructive Orthopaedic Surgery
DX: M25.562 Pain in left knee (principal); M25.362 Other instability, left knee; R53.1 Weakness; I10 Essential (primary) hypertension; E11.9 Type 2 diabetes mellitus without complications
CPT/HCPCS: 97110; 97162

== ENCOUNTER 2025-03-26 14:00 | Outpatient (RCR) | payer MEDICARE, MEDICAID, SELFPAY ==
--- NOTE | 2025-03-13 14:36 | PTNOTE_ITS ---
PT Outpatient Daily Note OP Daily Note Outpatient Physical Therapy Treatment Date: 03/13/25 Visit Reasons: LEFT TKA Subjective: Pt reports L knee is progressing. Objective: Please see flow sheet for ther ex list. Assessment: Interventions given alternating sitting and standing to maximize rehab potential. Plan: Continue with pOC. Length of Time (minutes) of Treatment: 30 Minutes CREW LEADER/CONTROL ROOM OPERATOR Service Modifier Method I: Divide the number of min of care provided by the CREW LEADER/CONTROL ROOM OPERATOR/MANJULA by the total min of care provided then multiply by 100. If greater than 11 percent modifier is required. Method II: Divide the total time of care provided to patient by 10 (round to the nearest whole number) and add 1 min. to set the minimum time requirement. If treatment total was 60 min., then 10% of 6 min PT CQ modifier applied: CQ Modifier applied Procedure Charges Therapeutic Exercise 30 minutes: Yes
--- NOTE | 2025-03-16 14:34 | PTNOTE_ITS ---
PT Outpatient Daily Note OP Daily Note Outpatient Physical Therapy Treatment Date: 03/16/25 Visit Reasons: LEFT TKA Subjective: Pt reports her R hip has been sore since starting PT and notices her L knee buckling. Last time her knee buckled was yesterday. Objective: Please see flow sheet for ther ex list. Assessment: Held on standing hip abduction to accommodate reported r hip soreness, cold pack applied end of session. Plan: Continue with poC. Length of Time (minutes) of Treatment: 30 Minutes PRIMING MACHINE OPERATOR Service Modifier Method I: Divide the number of min of care provided by the PRIMING MACHINE OPERATOR/INTEL RECRUITER by the total min of care provided then multiply by 100. If greater than 11 percent modifier is required. Method II: Divide the total time of care provided to patient by 10 (round to the nearest whole number) and add 1 min. to set the minimum time requirement. If treatment total was 60 min., then 10% of 6 min PT CQ modifier applied: CQ Modifier applied Procedure Charges Therapeutic Exercise 30 minutes: Yes
--- NOTE | 2025-03-18 14:38 | PT.ODAYNRPT ---
PT Outpatient Daily Note OP Daily Note Outpatient Physical Therapy Treatment Date: 03/18/25 Visit Reasons: LEFT TKA Subjective: Pt reports her R hip has been sore since starting PT and notices her L knee buckling. Last time her knee buckled was yesterday. Objective: Please see flow sheet for therex Assessment: Difficulty with total gym squats on level 6, 35% body weight. She uses hands with sit to stand transfers. Plan: Continue with poC. Length of Time (minutes) of Treatment: 30 Minutes GRADES 1 THRU 5 TEACHER Service Modifier Method I: Divide the number of min of care provided by the GRADES 1 THRU 5 TEACHER/TELECOMMUNICATIONS ANALYST by the total min of care provided then multiply by 100. If greater than 11 percent modifier is required. Method II: Divide the total time of care provided to patient by 10 (round to the nearest whole number) and add 1 min. to set the minimum time requirement. If treatment total was 60 min., then 10% of 6 min PT CQ modifier applied: CQ Modifier applied Procedure Charges Therapeutic Exercise 30 minutes: Yes
--- NOTE | 2025-03-24 17:28 | PTNOTE_ITS ---
PT Outpatient Daily Note OP Daily Note Outpatient Physical Therapy Treatment Date: 03/24/25 Visit Reasons: LEFT TKA Subjective: Pt reports her R hip has been sore since starting PT and notices her L knee buckling. Objective: Please see flow sheet for therex Assessment: Less difficulty with total gym squats on level 6, 35% body weight but after 20 reps she couldn't push up. She uses hands with sit to stand transfers. Plan: Continue with poC. Length of Time (minutes) of Treatment: 30 Minutes MOTOR VEHICLE DISPATCHER Service Modifier Method I: Divide the number of min of care provided by the MOTOR VEHICLE DISPATCHER/INTERNET MARKETING DIRECTOR by the total min of care provided then multiply by 100. If greater than 11 percent modifier is required. Method II: Divide the total time of care provided to patient by 10 (round to the nearest whole number) and add 1 min. to set the minimum time requirement. If treatment total was 60 min., then 10% of 6 min PT CQ modifier applied: CQ Modifier applied Procedure Charges Therapeutic Exercise 30 minutes: Yes
--- NOTE | 2025-03-26 14:46 | PT.ODAYNRPT ---
PT Outpatient Daily Note OP Daily Note Outpatient Physical Therapy Treatment Date: 03/26/25 Visit Reasons: LEFT TKA Subjective: Pt reports L knee is doing better, has not been having to apply lidocaine cream as often. Objective: Please see flow sheet for ther ex list. Assessment: Interventions given alternating sitting and standing to maximize pt participation. Plan: Continue with pOC. Length of Time (minutes) of Treatment: 30 Minutes TALENT ACQUISITION MANAGER Service Modifier Method I: Divide the number of min of care provided by the TALENT ACQUISITION MANAGER/MANJULA by the total min of care provided then multiply by 100. If greater than 11 percent modifier is required. Method II: Divide the total time of care provided to patient by 10 (round to the nearest whole number) and add 1 min. to set the minimum time requirement. If treatment total was 60 min., then 10% of 6 min PT CQ modifier applied: CQ Modifier applied Procedure Charges Therapeutic Exercise 30 minutes: Yes
== END 2025-04-10 23:59 | disposition home or self-care (01) ==
LOC: CPTX 14:00
PROVIDERS: PCP Orthopaedic Surgery Adult Reconstructive Orthopaedic Surgery; Referring Provider Orthopaedic Surgery Adult Reconstructive Orthopaedic Surgery; Visit Provider Orthopaedic Surgery Adult Reconstructive Orthopaedic Surgery
DX: M25.562 Pain in left knee (principal); M23.52 Chronic instability of knee, left knee; R53.1 Weakness; Z96.652 Presence of left artificial knee joint; I10 Essential (primary) hypertension; E11.9 Type 2 diabetes mellitus without complications
CPT/HCPCS: 97110

== ENCOUNTER → 2025-04-22 | Outpatient (CLI) | payer MEDICARE, MEDICAID, SELFPAY ==
[2025-04-22 10:44] LABS: Basophils # (Auto) 0.1 Thou/mm3 (0.0-0.2); Basophils % (Auto) 1 % (0-2.5); Eosinophils # (Auto) 0.1 Thou/mm3 (0.0-0.5); Eosinophils % (Auto) 2 % (0-10); Hematocrit 39.5 % (36.0-46.0); Hemoglobin 13.4 g/dL (12.0-16.0); Immature Granulocytes Auto 0.03 Thou/mm3 (0.00-0.00); Lymphocytes # (Auto) 2.7 Thou/mm3 (1.0-4.8); Lymphocytes % (Auto) 33 % (10-50); Mean Corpuscular HGB Conc 33.9 g/dl (31.0-37.0); Mean Corpuscular Hemoglobin 29.8 pg (25.0-35.0); Mean Corpuscular Volume 88 fL (80-100); Monocytes # (Auto) 0.5 Thou/mm3 (0.0-0.8); Monocytes % (Auto) 7 % (0-12); Neutrophils # (Auto) 4.9 Thou/mm3 (1.8-7.7); Neutrophils % (Auto) 58 % (37-80); Nucleated Red Blood Cell # 0.00 Thou/mm3 (0.00-0.00); Nucleated Red Blood Cell % 0 /100 WBC (0); Platelet Count 361 Thou/mm3 (140-440); RDW Standard Deviation 42.3 fL (36.4-46.3); Red Blood Count 4.50 Miln/mm3 (4.00-5.20); White Blood Count 8.3 Thou/mm3 (3.6-11.0)
[2025-04-22 11:13] LABS: Alanine Aminotransferase 11 U/L (10-49); Albumin, Serum 5.4 gm/dL (3.4-4.8); Albumin/Globulin Ratio 2.5 (1.2-2.2); Alkaline Phosphatase 83 U/L (46-116); Anion Gap 9 (7-16); Aspartate Amino Transferase 17 U/L (0-34); BUN/Creatinine Ratio 16 Ratio (12-20); Bilirubin,Total 0.5 mg/dL (0.3-1.2); Blood Urea Nitrogen 11 mg/dL (9-23); Calcium 10.0 mg/dL (8.3-10.6); Calcium (Corrected) 10.0 mg/dL (8.5-10.1); Carbon Dioxide 30.5 mMol/L (20.0-31.0); Chloride 99 mMol/L (98-107); Creatinine (Component) 0.7 mg/dL (0.6-1.3); Globulin 2.2 gm/dL (2.3-3.5); Glucose 98 mg/dL (74-106); Osmolality,Calculated 275 (275-295); Potassium 4.7 mMol/L (3.4-5.1); Sodium 138 mMol/L (136-145); Total Protein 7.6 gm/dL (5.7-8.2); eGFR > 60 See Note
== END | disposition home or self-care (01) ==
PROVIDERS: PCP Nurse Practitioner Family; Referring Provider Internal Medicine Nephrology; Visit Provider Internal Medicine Nephrology
DX: I12.9 Hypertensive chronic kidney disease with stage 1 through stage 4 chronic kidney disease, or unspecified chronic kidney disease (principal); E11.22 Type 2 diabetes mellitus with diabetic chronic kidney disease; N18.9 Chronic kidney disease, unspecified; D63.1 Anemia in chronic kidney disease; E78.5 Hyperlipidemia, unspecified; E21.3 Hyperparathyroidism, unspecified
CPT/HCPCS: 36415; 80053; 85025

== ENCOUNTER 2025-05-04 09:30 | Outpatient (RCR) | payer MEDICARE, MEDICAID, SELFPAY ==
--- NOTE | 2025-04-28 13:08 | PTNOTE_ITS ---
PT Outpatient Daily Note OP Daily Note Outpatient Physical Therapy Treatment Date: 04/28/25 Visit Reasons: LEFT KNEE TKA Subjective: Pt reports she has been busy and on her feet more often due to her husbands hospitalization. Pt notices her knee is swelling up on her. Objective: Please see flow sheet for ther ex list. Assessment: Light interventions completed with minimal pain, applied cold pack post session. Plan: Continue with POC. Length of Time (minutes) of Treatment: 30 Minutes ANTI AIR WARFARE OPERATIONS OFFICER Service Modifier Method I: Divide the number of min of care provided by the ANTI AIR WARFARE OPERATIONS OFFICER/MANJULA by the total min of care provided then multiply by 100. If greater than 11 percent modifier is required. Method II: Divide the total time of care provided to patient by 10 (round to the nearest whole number) and add 1 min. to set the minimum time requirement. If treatment total was 60 min., then 10% of 6 min PT CQ modifier applied: CQ Modifier applied Procedure Charges Therapeutic Exercise 30 minutes: Yes
--- NOTE | 2025-04-30 10:44 | PT.ODAYNRPT ---
PT Outpatient Daily Note OP Daily Note Outpatient Physical Therapy Treatment Date: 04/30/25 Visit Reasons: LEFT KNEE TKA
--- NOTE | 2025-04-30 10:46 | PT.ODS1RPT ---
PT OP Progress/Discharge Note Date of Service: 04/30/25 Progress Note/DC Note Progress Note/Discharge Note: DC Note Patient Information Visit Reasons: LEFT KNEE TKA Service Continue Service or Discharge: Discharge Discharge Date: 04/30/25 Status Subjective: Overall better strength and less pain of L knee since starting therapy Objective: L knee AROM; Flexion: 115 deg Extension full STrength: 4/5 of quads and hamstrings Assessment: Pt has attended the evaluation and 9 Rx sessions with fair progress with therapy goals. She has a little more flexion ROM and strength of quads and HS. Pt would benefit from continued therapy x8 visits to improve ambulatory tolerance and strength of L knee to meet goal of 4+/5 Plan: Continue per POC x8 Rx sessions Procedure Charges OP PT Eval Mod Complex 30 minutes: Yes
--- NOTE | 2025-05-04 13:15 | PT.ODAYNRPT ---
PT Outpatient Daily Note OP Daily Note Outpatient Physical Therapy Treatment Date: 05/04/25 Visit Reasons: LEFT KNEE TKA Subjective: The L knee was sore after last visit attributed to therapy exercises. Using 4WW Objective: See F/S for therex Assessment: Moderate tissue irritability with therex Plan: Continue per POC Length of Time (minutes) of Treatment: 30 Minutes Procedure Charges Therapeutic Exercise 30 minutes: Yes
== END 2025-05-10 23:59 | disposition home or self-care (01) ==
LOC: CPTX 09:30
PROVIDERS: PCP Orthopaedic Surgery Adult Reconstructive Orthopaedic Surgery; Referring Provider Orthopaedic Surgery Adult Reconstructive Orthopaedic Surgery; Visit Provider Orthopaedic Surgery Adult Reconstructive Orthopaedic Surgery
DX: M25.562 Pain in left knee (principal); M25.362 Other instability, left knee; R53.1 Weakness; I10 Essential (primary) hypertension; E11.9 Type 2 diabetes mellitus without complications
CPT/HCPCS: 97110; 97162

== ENCOUNTER → 2025-05-26 | Outpatient (CLI) | payer MEDICARE, MEDICAID, SELFPAY ==
[2025-05-26 11:21] LABS: Basophils # (Auto) 0.1 Thou/mm3 (0.0-0.2); Basophils % (Auto) 1 % (0-2.5); Eosinophils # (Auto) 0.1 Thou/mm3 (0.0-0.5); Eosinophils % (Auto) 1 % (0-10); Hematocrit 40.7 % (36.0-46.0); Hemoglobin 13.5 g/dL (12.0-16.0); Immature Granulocytes Auto 0.04 Thou/mm3 (0.00-0.00); Lymphocytes # (Auto) 2.7 Thou/mm3 (1.0-4.8); Lymphocytes % (Auto) 32 % (10-50); Mean Corpuscular HGB Conc 33.2 g/dl (31.0-37.0); Mean Corpuscular Hemoglobin 29.1 pg (25.0-35.0); Mean Corpuscular Volume 88 fL (80-100); Monocytes # (Auto) 0.6 Thou/mm3 (0.0-0.8); Monocytes % (Auto) 7 % (0-12); Neutrophils # (Auto) 5.0 Thou/mm3 (1.8-7.7); Neutrophils % (Auto) 59 % (37-80); Nucleated Red Blood Cell # 0.00 Thou/mm3 (0.00-0.00); Nucleated Red Blood Cell % 0 /100 WBC (0); Platelet Count 363 Thou/mm3 (140-440); RDW Standard Deviation 40.4 fL (36.4-46.3); Red Blood Count 4.64 Miln/mm3 (4.00-5.20); White Blood Count 8.4 Thou/mm3 (3.6-11.0)
[2025-05-26 11:43] LABS: Alanine Aminotransferase 12 U/L (10-49); Albumin, Serum 5.6 gm/dL (3.4-4.8); Albumin/Globulin Ratio 2.4 (1.2-2.2); Alkaline Phosphatase 87 U/L (46-116); Anion Gap 8 (7-16); Aspartate Amino Transferase 17 U/L (0-34); BUN/Creatinine Ratio 24 Ratio (12-20); Bilirubin,Total 0.4 mg/dL (0.3-1.2); Blood Urea Nitrogen 17 mg/dL (9-23); Calcium 9.7 mg/dL (8.3-10.6); Calcium (Corrected) 9.7 mg/dL (8.5-10.1); Carbon Dioxide 30.8 mMol/L (20.0-31.0); Chloride 97 mMol/L (98-107); Creatinine (Component) 0.7 mg/dL (0.6-1.3); Globulin 2.3 gm/dL (2.3-3.5); Glucose 97 mg/dL (74-106); Osmolality,Calculated 273 (275-295); Potassium 4.4 mMol/L (3.4-5.1); Sodium 136 mMol/L (136-145); Total Protein 7.9 gm/dL (5.7-8.2); eGFR > 60 See Note
== END | disposition home or self-care (01) ==
LOC: COPL 10:17
PROVIDERS: Referring Provider Internal Medicine Nephrology; Visit Provider Internal Medicine Nephrology
DX: I12.9 Hypertensive chronic kidney disease with stage 1 through stage 4 chronic kidney disease, or unspecified chronic kidney disease (principal); E11.22 Type 2 diabetes mellitus with diabetic chronic kidney disease; N18.9 Chronic kidney disease, unspecified; D63.1 Anemia in chronic kidney disease; E78.5 Hyperlipidemia, unspecified
CPT/HCPCS: 36415; 80053; 85025

== ENCOUNTER 2025-05-27 09:00 | Outpatient (RCR) | payer MEDICARE, MEDICAID, SELFPAY ==
--- NOTE | 2025-05-13 11:58 | PTNOTE_ITS ---
PT Outpatient Daily Note OP Daily Note Outpatient Physical Therapy Treatment Date: 05/13/25 Visit Reasons: LEFT KNEE SURGERY Subjective: Pt came in c/o R groin pain and mentioned that she feels there is 3 knots. Pt shared that the hip and groin pain started over a week ago but notices worse when walking standing or just putting weight on it. Objective: Please see flow sheet for ther ex list. Assessment: Pt presents in clinic with high groin pain on R side, held on closed kinetic chain interventions to accommodate pain. Plan: Comtinue with pOC. Length of Time (minutes) of Treatment: 30 Minutes SLURRY CONTROL TENDER Service Modifier Method I: Divide the number of min of care provided by the SLURRY CONTROL TENDER/MANJULA by the total min of care provided then multiply by 100. If greater than 11 percent modifier is required. Method II: Divide the total time of care provided to patient by 10 (round to the nearest whole number) and add 1 min. to set the minimum time requirement. If treatment total was 60 min., then 10% of 6 min PT CQ modifier applied: CQ Modifier applied Procedure Charges Therapeutic Exercise 30 minutes: Yes
--- NOTE | 2025-05-18 09:43 | PT.ODAYNRPT ---
PT Outpatient Daily Note OP Daily Note Outpatient Physical Therapy Treatment Date: 05/18/25 Visit Reasons: LEFT KNEE SURGERY Subjective: Pt c/o R hip pain attributed to grocery shopping for 2 hrs pushing a cart. She doesn't want to do exercise that involves the R hip. Objective: See F/S for therex Held closed chain therex due to R hip pain Assessment: Good strength and ROM of L knee in open chain today with low tissue irritability Plan: Continue per POC Length of Time (minutes) of Treatment: 30 Minutes Procedure Charges Therapeutic Exercise 30 minutes: Yes
--- NOTE | 2025-05-20 10:08 | PT.ODAYNRPT ---
PT Outpatient Daily Note OP Daily Note Outpatient Physical Therapy Treatment Date: 05/20/25 Visit Reasons: LEFT KNEE SURGERY Subjective: Overall better with less L knee pain and better ROM. The R hip is bothering her. Objective: See F/S for therex L knee flexion AROM: 116 deg MHP: L knee x5' Assessment: Good progress with goals with improved L knee flexion AROM to 116 deg. She is ambulating community distances with symmetrical pattern to meet that goal. Pt has improved quad and HS strength. Plan: Reassess Length of Time (minutes) of Treatment: 30 Minutes Procedure Charges Therapeutic Exercise 30 minutes: Yes
--- NOTE | 2025-05-27 17:50 | PT.ODS1RPT ---
PT OP Progress/Discharge Note Date of Service: 05/27/25 Progress Note/DC Note Progress Note/Discharge Note: DC Note Patient Information Visit Reasons: LEFT KNEE SURGERY Service Continue Service or Discharge: Discharge Discharge Date: 05/27/25 Status Subjective: Overall better strength and less pain of L knee since starting therapy. She is prepared to D/C from therapy Objective: L knee AROM; Flexion: 115 deg Extension full Strength: 4+/5 of quads and hamstrings Assessment: Pt has attended the evaluation and 15 Rx sessions with good progress with therapy goals. She has a little more flexion ROM and strength of quads and HS. Pt has met the strength of L knee to meet goal of 4+/5 and is ambulating community distances with symmetrical pattern and 4WW to meet that goal. Plan: D/C with HEP Procedure Charges Therapeutic Exercise 30 minutes: Yes
== END 2025-06-10 23:59 | disposition home or self-care (01) ==
LOC: CPTX 09:00
PROVIDERS: PCP Orthopaedic Surgery Adult Reconstructive Orthopaedic Surgery; Referring Provider Orthopaedic Surgery Adult Reconstructive Orthopaedic Surgery; Visit Provider Orthopaedic Surgery Adult Reconstructive Orthopaedic Surgery
DX: Z47.1 Aftercare following joint replacement surgery (principal); Z96.652 Presence of left artificial knee joint; M25.562 Pain in left knee; M25.362 Other instability, left knee
CPT/HCPCS: 97110

== ENCOUNTER 2025-06-09 13:10 | Outpatient (AMB) | payer MEDICARE, MEDICAID, SELFPAY ==
[2025-06-09 13:28] VITALS: BP 129/79; PULSE 91; RESP 18; TEMP 36.4; O2SAT 92; BMI 32.1
--- NOTE | 2025-06-09 13:28 | ORTHONT_ITS ---
Vital signs 06/09/25 13:28 Height 1.6 m Height Method Stated Weight 82.129 kg Weight Measurement Method Standing Scale BMI 32.1 BP 129/79 Blood Pressure Source Automatic Cuff Blood Pressure Location Left Upper Arm Position Sitting Respiration 18 Pulse 91 Pulse Source Monitor Temp 97.5 F Temp Source Temporal Artery Scan Pulse Oximetry (%) 92 L Oxygen Delivery Method Room Air Med/Allergies Allergies & Medications Allergies codeine Allergy (Mild, Verified 06/09/25 13:28) Nausea Medication Reconciliation atorvastatin 10 mg tablet 10 mg PO QDAY 06/28/18 [History Confirmed 06/09/25] clonazepam 0.5 mg tablet 0.5 mg PO HS 06/28/18 [History Confirmed 06/09/25] levothyroxine 75 mcg tablet 75 mcg PO QDAY 06/28/18 [History Confirmed 06/09/25] olanzapine 15 mg tablet 15 mg PO DAILY 06/28/18 [History Confirmed 06/09/25] pantoprazole 40 mg tablet,delayed release 40 mg PO QDAY 06/28/18 [History Confirmed 06/09/25] lisinopril 20 mg tablet 10 mg PO QDAY 03/11/21 [History Confirmed 06/09/25] metformin 500 mg tablet 500 mg PO QDAY 03/11/21 [History Confirmed 06/09/25] acetaminophen 325 mg tablet (Tylenol) 650 mg PO BID PRN Pain 07/05/22 [History Confirmed 06/09/25] amlodipine 10 mg tablet 10 mg PO DAILY 07/05/22 [History Confirmed 06/09/25] ferrous sulfate 325 mg (65 mg iron) tablet 325 mg PO BID 07/05/22 [History Confirmed 06/09/25] tramadol 50 mg tablet 50 mg PO BID PRN Pain 07/05/22 [History Confirmed 06/09/25] bupropion HCl 100 mg tablet,12 hr sustained-release 100 mg PO QAM 01/14/25 [History Confirmed 06/09/25] cinacalcet 30 mg tablet 30 mg PO QDAY 01/14/25 [History Confirmed 06/09/25] dapagliflozin propanediol 5 mg tablet (Farxiga) 5 mg PO QAM 01/14/25 [History Confirmed 06/09/25] finerenone 10 mg tablet (Kerendia) 10 mg PO QDAY 01/14/25 [History Confirmed 06/09/25] lidocaine 5 % topical patch 1 patch topical Q24H 01/14/25 [History Confirmed 06/09/25] linaclotide 290 mcg capsule (Linzess) 290 mcg PO QAM 01/14/25 [History Confirmed 06/09/25] loperamide 2 mg capsule 2 mg PO Q6H PRN loose stool 01/14/25 [History Confirmed 06/09/25] loratadine 10 mg tablet 10 mg PO QDAY 01/14/25 [History Confirmed 06/09/25] ondansetron HCl 4 mg tablet 4 mg PO Q8H PRN nausea and vomiting 01/14/25 [History Confirmed 06/09/25] torsemide 20 mg tablet 20 mg PO QAM 01/14/25 [History Confirmed 06/09/25] aspirin 81 mg tablet,delayed release 81 mg PO BID #60 tabs 01/19/25 [Rx Confirmed 06/09/25] doxycycline hyclate 100 mg tablet 100 mg PO BID #14 tabs 01/19/25 [Rx Confirmed 06/09/25] sennosides 8.6 mg-docusate sodium 50 mg tablet (Senna-S) 1 tab-cap PO QDAY #30 tabs 01/19/25 [Rx Confirmed 06/09/25] acetaminophen 500 mg tablet (Acetaminophen Extra Strength) 1,000 mg (2 x 500 mg) PO Q6H PRN pain #90 tabs 01/26/25 [Rx Confirmed 06/09/25] gabapentin 300 mg capsule 300 mg PO .qhs #30 caps 01/26/25 [Rx Confirmed 06/09/25] hydroxyzine HCl 10 mg tablet 10 mg PO TID PRN itching #20 tabs 02/03/25 [Rx Confirmed 06/09/25] oxycodone 5 mg tablet 5 mg PO Q6H PRN pain #28 tabs 02/03/25 [Rx Confirmed 06/09/25] Exam Exam Patient is in no acute distress and is cooperative with the examination today. Breathing is nonlabored. Patient has a normal mood and affect. The patient has a gait that is nonantalgic Bilateral extremities were evaluated and demonstrates sensation intact to light touch. Palpable pedal pulses are present. No significant edema is present. Bilateral hips were examined. The patient has no pain with log roll of the hips. Internal rotation to 30 degrees and external rotation to 30 degrees is painless. Negative FADIR. Right knee was examined today. The right knee is in reasonable alignment. Range of motion from 0-120 degrees. Knee is stable to varus and valgus as well as AP translation with <5mm. Incision is clean dry and intact Left knee was examined today.Left knee incision is clean dry intact. Knee feels stable to varus valgus stress as well as AP translation Assessment and Plan Problem List (1) Tendonitis: Status: Acute (2) Pain in right knee: Status: Acute (3) Posterior left knee pain: Status: Acute Plan: ASSESSMENT AND PLAN 1. Postoperative status following left revision knee replacement: Generalized aches are reported at night, but there is no specific pain in the back of the knee. The knee appears less swollen than the right side. Stability has improved with physical therapy, which is ongoing and beneficial. she would like physical therapy for both her right hip and back. Her left knee is actually doing very well. We will also set her up with a right hip intra- articular cortisone injection (4) Arthritis of right hip: Status: Acute Advanced Care Planning Discussion Advance care planning discussed with:: patient Office Procedures GNS Level of Care Nursing/Assessment Patient Status: Established Patient Nursing Assessment/Reassesment: Medication Reconciliation, Update PMH in EMR and Vital Signs Coordination of Care: Complex Care and Chronic Disease 1-5, Education Complex Pt/Fam, Consent,records obtained, informed consent, Results/Orders obtained and Staff clarify orders Established Patient Charge Established Patient Point Assignment: 95 Established Patient Point Charge: EP Level 3 (80-115) MA Intake Visit Data Collection New Patient or Established: Established Patient (seen at [facility] within 3 years) Reason for Visit:: L TKA FU Seen by Clinical Staff ONLY (RN/MA): No PCP or OBGYN visit in last 3 months: Yes Hx Now: No Do You Feel Safe at Home: Yes Authorities Contacted: N/A Questionairres Past Medical History Past Medical History Have you ever been diagnosed with any of the following: Neurological Problems Seizures: No Migraine: No Cardiology Problems Peripheral Vascular Disease: Yes Hypercholesterolemia: Yes Congestive Heart Failure: No Edema: No Cellulitis: No Hypertension: Yes Varicose Veins: Yes Respiratory Problems Chronic Obstructive Pulmonary Disease (COPD): No Asthma: Yes Bronchitis: Yes Pneumonia: Yes Tuberculosis: No Sleep Apnea: No Smoking: No Smoking Cessation Counseling: No Smoking Exposure: No Tobacco Use: No Stomache/Intestinal Problems Hepatitis: No Colorectal Cancer: No Hemorrhoids: Yes (and constipation) Gastroesophageal Reflux Disease: Yes (takes medication) Obesity: Yes Genital/Urinary Problems Renal Disease: No Reproductive Problems Breast Cancer: No Pelvic Inflammatory Disease: No Previous Pregnancies: No Musculoskeletal Problems Bone Cancer: No Arthritis: Yes Carpal Tunnel Syndrome: No Fractures: No Head,Eye,Nose,Throat Problems Cataracts: Yes (Bilateral) Deafness: Yes (wears hearing aid-bilateral) Endocrine Problems Diabetes Mellitus Type 1: No Diabetes Mellitus Type 2: Yes (takes medication) Hypothyroidism: Yes (takes medication) Blood Problems Anemia: Yes (takes medication) Psychologic Problems Schizophrenia: Yes Depression: Yes (takes medication) Anxiety: Yes (takes medication) Other Problems Hospitalization: Yes (knee replacement 2020) Shingles: Yes (2001) Falls: No Blood Transfusions: No Blood Transfusion Reaction: No Anesthesia Reactions: Yes (Nausea with anesthesia.) Chemotherapy: No Radiation Therapy: No MRSA: No Chicken Pox: Yes (child) Measles: No Mumps: No Clostridium Difficile: No Cancer: No Cervical Cancer: No Lung Cancer: No Ovarian Cancer: No Surgical History Hysterectomy: No Pacemaker: No Subjective Visit Visit for: follow up visit and knee Immunization / Flu Flu Vaccine in the Last 12 Months: No Flu Vaccine Exclusion Criteria: No Exclusion Criteria History of Present Illness Chief complaint: Left knee pain HISTORY OF PRESENT ILLNESS IAbrahan, have obtained verbal consent from the patient, to be recorded during this encounter which may include, but not limited to, medical history, examination, treatment plans, and relevant health information.? Patient was informed that recording will be read and reviewed by myself before inclusion in the medical chart. The patient is a pleasant 70-year-old female who is status post left revision knee replacement for instability. She is currently 12 weeks post-surgery and reports feeling well overall. She e xperiences pain at night, which she describes as a generalized ache from the surgery. she is doing well with her left knee However, she reports a lot of right hip and groin pain as well as right back pain. We discussed that we could try anti-inflammatories as well as cortisone injection of the right hip. PAST SURGICAL HISTORY: Left revision knee replacement for instability. Personal History Red flag PMH: none Pain Pain level (0-10): 10 Pain duration: ALL DAY Pain location: inside (medial), outside (lateral) and anterior Pain quality: sharp, dull and aching Pain timing: night, increases with activity and stairs Associated signs & symptoms: numbness and weakness Ambulatory data Ambulatory device: none Walking distance (minutes): 1 Treatments Number of previous injections: 0 Improvement with previous injections: No Number of Physical Therapy sessions: 8 Improvement with PT: No Improvement with NSAIDS: no Review of Systems Review of Systems: All systems negative unless otherwise noted in HPI.
== END 2025-06-09 13:46 | disposition home or self-care (01) ==
LOC: HODSRG 13:10
PROVIDERS: PCP Nurse Practitioner Family; Referring Provider Nurse Practitioner Family; Supervising Provider Orthopaedic Surgery Adult Reconstructive Orthopaedic Surgery; Visit Provider Orthopaedic Surgery Adult Reconstructive Orthopaedic Surgery
DX: Z47.1 Aftercare following joint replacement surgery (principal); Z96.652 Presence of left artificial knee joint; M16.11 Unilateral primary osteoarthritis, right hip; M25.551 Pain in right hip; M25.562 Pain in left knee; R10.30 Lower abdominal pain, unspecified; M54.9 Dorsalgia, unspecified; I10 Essential (primary) hypertension; E11.9 Type 2 diabetes mellitus without complications; Z79.84 Long term (current) use of oral hypoglycemic drugs; E66.9 Obesity, unspecified; Z68.32 Body mass index [BMI] 32.0-32.9, adult
CPT/HCPCS: 99213; G0463